=== PATIENT | male | born 1965 | race Caucasian/White ===

== ENCOUNTER 2017-03-18 14:19 | Emergency (ER) | payer OTHER ==
[~2017-03-18] VITALS: Ht 177.8 cm; Wt 96.0 kg
[2017-03-18 14:37] VITALS: TEMP 36.9; Ht 177.8 cm; Wt 96.0 kg
--- NOTE | 2017-03-18 15:23 | DIAGNOSTIC IMAGING REPORT ---
RIGHT ANKLE MIN 3 VIEWS ROUTINE CLINICAL HISTORY: Right ankle pain s/p pulling injury. Edema noted laterally. COMPARISON: None FINDINGS: There is a 3 mm ossific fragment along the fibular tip which represents an age indeterminate avulsed bone fragment. Talar dome is intact. There is moderate lateral ankle soft tissue swelling. No additional fractures are identified. IMPRESSION: 1. Tiny age indeterminate avulsed bone fragment along the fibular tip. No additional fractures identified. 2. Moderate lateral ankle soft tissue swelling. Electronically signed by: Smith Flores M.D. 03/18/2017 3:22 PM Dictated Date/Time: 03/18/2017 3:20 PM
--- NOTE | 2017-03-18 15:47 | EMERGENCY ROOM VISIT NOTE ---
History First contact with patient: 14:41 Chief Complaint: ANKLE PAIN Stated Complaint: RIGHT ANKLE PAIN History of Present Illness The patient is a 52 year old male who presents to the Emergency Room via private vehicle accompanied by with complaints of "right ankle pain. The patient states that earlier today, approximately 1.5 hours prior to arrival he was participating in a sack race. He states that when he attempted to move his right leg out of the sac the foot became caught, causing a popping sound in his right ankle. He notes immediate pain, and pain with bearing weight. He rates the pain at rest is a 3/10, but greater with weightbearing. He has had 2 ibuprofen prior to arrival and has been icing and elevating the region. He denies any numbness or tingling in the distal region. Review of Systems A complete 6-point Review of Systems was discussed with the patient, with pertinent positives and negatives listed in the History of Present Illness. All remaining Review of Systems questions can be considered negative unless otherwise specified. Past Medical/Surgical History Medical Problems: (1) No Known Active Medical Problems Family History Stroke Social History Smoking Status: Never Smoker Marital Status: Housing Status: lives with family Occupation Status: employed Current/Historical Medications No Active Prescriptions or Reported Meds Physical Exam Vital Signs Date Time Temp Pulse Resp B/P (MAP) Pulse Ox O2 Delivery O2 Flow Rate FiO2 03/18/17 15:49 65 16 136/74 98 Room Air 03/18/17 14:37 36.9 79 20 130/79 96 Room Air Physical Exam VITAL SIGNS - Vital signs and nursing notes were reviewed. Afebrile, hypertensive at 130/79, non-tachycardic and is saturating well on room air 96%. GENERAL -. 52-year-old male appearing stated age who is in no acute distress. Communicates well with provider and answers questions appropriately. SKIN - Without rashes. Skin overlying the right lateral ankle is edematous. EXTREMITIES - No clubbing or peripheral cyanosis. No pretibial edema present. Patient is neurovascularly intact in his extremity. There is tenderness elicited with plantarflexion, dorsiflexion and inversion as well as eversion of the right ankle joint appreciated best in the right lateral malleolar region, as well as anterior region. +5/5 strength noted in UE/LE bilaterally. Medical Decision & Procedures ER Provider Diagnostic Interpretation: RIGHT ANKLE MIN 3 VIEWS ROUTINE CLINICAL HISTORY: Right ankle pain s/p pulling injury. Edema noted laterally. COMPARISON: None FINDINGS: There is a 3 mm ossific fragment along the fibular tip which represents an age indeterminate avulsed bone fragment. Talar dome is intact. There is moderate lateral ankle soft tissue swelling. No additional fractures are identified. IMPRESSION: 1. Tiny age indeterminate avulsed bone fragment along the fibular tip. No additional fractures identified. 2. Moderate lateral ankle soft tissue swelling. Electronically signed by: Smith Flores M.D. 03/18/2017 3:22 PM Dictated Date/Time: 03/18/2017 3:20 PM Medical Decision Patient was seen and evaluated as above. After obtaining a thorough history and physical examination radiograph was obtained of the right ankle. He declined pain medication. He was given ice. Radiograph results revealed and an avulsed bone fragment. I believe this is best treated with a gel ankle splint, and crutches to be nonweightbearing. He was educated upon follow-up, was educated upon worrisome symptoms which to return, had questions prior to discharge, and was discharged home in good condition. In the evaluation and treatment of this patient, the following differential diagnoses were considered: Ankle Fracture, Ankle Sprain, Distal Fibula Fracture , Distal Tibia Fracture, Foot Fracture, [place]uve Fracture. Blood Pressure Screening Patient's blood pressure: Elevated blood pressure Blood pressure disposition: Elevated BP felt to be situational Impression Primary Impression: Avulsion fracture of ankle Departure Information Dispostion Home / Self-Care Condition GOOD Prescriptions No Active Prescriptions or Reported Meds Referrals John Mijares M.D. (PCP) Ar Duong D.O. Patient Instructions My [facility] Additional Instructions You have been treated in the Emergency Department for a right Ankle pain. You have received pain medicine in the emergency department which impairs your ability to operate a vehicle. It is illegal for you to drive after receiving these medicines. For pain control, you can use the following [id number] medicines: - Regular strength (325mg/tab) Tylenol (acetaminophen) 2 tabs every 4-6 hours as needed. Do not exceed 12 tablets in a 24 hour period. Avoid taking more than 4 grams (4000 mg) of Tylenol per day. This includes any other sources of acetaminophen you may take on a regular basis. - Regular strength (200 mg/tab) Advil (ibuprofen) 1-2 tabs every 4-6 hours as needed. Do not exceed a dose of 3200 mg per day. If this is a recent injury (<24 hrs), ice can be applied to the area of pain for the first 3 days to help decrease pain and inflammation. You have been provided the number for an Orthopaedic Surgeon. You should call this number as soon as possible to establish a follow-up visit from today's Emergency Department visit. Keep the ankle brace/splint in place until cleared by Orthopedics. Use the crutches you have been provided to keep ALL weight off of the ankle until weight bearing is tolerable. Return to the Emergency Department if your current symptoms worsen despite treatment course outlined above, or if you develop any of the following symptoms : intractable pain despite aforementioned treatment course or new onset of numbness or tingling of the foot. Please return to the emergency department with any new/concerning symptoms.
[2017-03-18 15:49] VITALS: BP 136/74; PULSE 65; O2SAT 98
== END 2017-03-18 15:58 | disposition home or self-care (01) ==
LOC: C.EDB 14:22 → C.EDD 15:58
DX: Z82.3 Family history of stroke (principal); M84.471A Pathological fracture, right ankle, initial encounter for fracture

== ENCOUNTER 2017-05-21 15:47 | Emergency (ER) | payer OTHER ==
[~2017-05-21] VITALS: Ht 177.8 cm; Wt 96.3 kg
[2017-05-21 15:49] VITALS: TEMP 36.9; Ht 177.8 cm; Wt 96.3 kg
--- NOTE | 2017-05-21 16:12 | DIAGNOSTIC IMAGING REPORT ---
R ANKLE MIN 3 VIEWS ROUTINE CLINICAL HISTORY: in d pod waiting room trauma. Pain. COMPARISON: 03/18/2017 DISCUSSION: Small old avulsion from the tip of the distal fibula. No acute bony abnormality. Mild soft tissue edema. IMPRESSION: Small old avulsion tip distal fibula. No acute bony abnormality. Mild soft tissue edema. The above report was generated using voice recognition software. It may contain grammatical, syntax or spelling errors. Electronically signed by: Omkar Amaya M.D. 05/21/2017 4:11 PM Dictated Date/Time: 05/21/2017 4:09 PM
--- NOTE | 2017-05-21 16:38 | EMERGENCY ROOM VISIT NOTE ---
ED Visit Note First contact with patient: 16:23 CHIEF COMPLAINT: right Ankle pain, hx avulsion fracture HISTORY OF PRESENT ILLNESS: This 52-year-old male patient presents to the emergency department approximately one hour after sustaining an injury to the right ankle and foot with a twisting, inversion motion while doing yard work. The patient states he accidentally stepped in a hole, reinjuring the right ankle. In February, the patient was participating in a sack race, when he fell and obtained an avulsion fracture of the lateral malleolus. He has been going through physical therapy and has been doing significantly better, however today when he fell he felt some sort of a pop. He states he has noticed a significant amount of swelling in the ankle, and has been unable to get it down. The patient complains of pain along the outside of the ankle. The patient denies pain of the foot. The patient rates the pain as throbbing and 6/ 10. The patient is able to bear weight on the foot, but this does cause worsening pain. Constant pain, worse with movement, weight bearing, and the dependent position. No knee pain, the patient is able to move their toes. No numbness or weakness of the foot, no laceration. The patient has taken [] for the pain. The patient denies any other injury. REVIEW OF SYSTEMS: A 6 system review of systems was completed with positives and pertinent negatives listed in the HPI. ALLERGIES: Cat dander, grass, course, elephants MEDICATIONS: Ibuprofen PMH: Avulsion fracture right lateral malleolus SOCIAL HISTORY: The patient lives locally with family. He denies drug, alcohol , tobacco use. PHYSICAL EXAM: Vital Signs: Reviewed Nurse's notes, vital signs stable. GENERAL : This is a 52-year-old male, presents in a wheelchair, no acute distress, but appears in pain, well-developed, well-nourished. MENTAL STATUS: Alert, oriented to person place and time, and cooperative. MUSCULOSKELETAL: The right ankle is swollen and tender over the lateral malleolus, but the skin is intact and there is no ligamentous instability. There is no fifth metatarsal tenderness. There is no tenderness over the rest of the foot. There is no calf or tibia/fibular tenderness. There is no visual deformity. The foot and toes are warm and well-perfused. Dorsalis pedis pulse 2+. Sensation to pain and light touch is intact. Capillary refill less than 2 seconds. RADIOLOGY: X-Ray Right Ankle: R ANKLE MIN 3 VIEWS ROUTINE CLINICAL HISTORY: in d pod waiting room trauma. Pain. COMPARISON: 03/18/2017 DISCUSSION: Small old avulsion from the tip of the distal fibula. No acute bony abnormality. Mild soft tissue edema. IMPRESSION: Small old avulsion tip distal fibula. No acute bony abnormality. Mild soft tissue edema. EMERGENCY DEPARTMENT COURSE: I examined the patient. Critical pathways were initiated and an x-ray was ordered. X-rays of the right ankle were reviewed by myself and read by radiology and reveal and old avulsion fracture of the distal fibula, but no acute fracture or deformity. A gel ankle splint was applied to the ankle under my direction and the position was satisfactory. Neurovascular status was rechecked and intact. The patient was instructed on the use of crutches and advised to use the crutches he has at home. The patient was discharged home in good condition. DIFFERENTIAL DIAGNOSIS: Fracture, contusion, sprain, strain, and others DIAGNOSIS: Right ankle sprain DISCHARGE INSTRUCTIONS: ORTHOPEDIC INSTRUCTIONS: Ibuprofen(Motrin, Advil) may be used for fever or pain. Use 600mg every six hours as needed. Take with food. Avoid using more than 2400mg in a 24 hour period. Do not use 2400mg per day for more than three consecutive days without physician direction. Prolonged inappropriate use can lead to stomach upset or ulcers. (AND/OR) Acetaminophen(Tylenol) may be used for fever or pain. Use 1000mg every six hours as needed. Avoid using more than 3000mg in a 24 hour period. Ice compresses for 20 minutes at a time four times daily for 2-3 days. Use the crutches you already have as instructed. Wear the gel splint until cleared by PT/orthopedics. Rest and elevate your injury. Return to the ER immediately for any numbness, tingling, severe pain, extreme swelling in the extremity or as needed. Call [facility], [phone], on Monday to arrange follow up for your injury. Please tell your Physical therapist at your appointment tomorrow about re- injuring the ankle. This will help to manage your new injury. Follow-up with your primary care physician in 2 to 3 days for a recheck of your current condition. Current/Historical Medications Scheduled PRN Ibuprofen Tab (Advil), 400 MG PO Q6H PRN for Pain Allergies Coded Allergies: Grass (Verified Allergy, Intermediate, CONGESTION, 03/18/17) Horse Allergy (Verified Allergy, Intermediate, ASTHMA, 03/18/17) Cat Dander (Verified Adverse Reaction, Intermediate, ASTHMA SYMPTOMS, 03/18) Uncoded Allergies: ELEPHANTS (Allergy, Intermediate, ASTHMA, 08/12/15) Vital Signs Date Time Temp Pulse Resp B/P (MAP) Pulse Ox O2 Delivery O2 Flow Rate FiO2 05/21/17 17:02 84 18 160/68 99 05/21/17 15:49 36.9 83 18 151/77 97 Room Air Departure Information Impression Primary Impression: Right ankle sprain Additional Impression: Avulsion fracture of ankle Dispostion Home / Self-Care Condition GOOD Referrals John Mijares M.D. (PCP) Ar Duong D.O. Patient Instructions ED Sprain Ankle, [facility] Additional Instructions ORTHOPEDIC INSTRUCTIONS: Ibuprofen(Motrin, Advil) may be used for fever or pain. Use 600mg every six hours as needed. Take with food. Avoid using more than 2400mg in a 24 hour period. Do not use 2400mg per day for more than three consecutive days without physician direction. Prolonged inappropriate use can lead to stomach upset or ulcers. (AND/OR) Acetaminophen(Tylenol) may be used for fever or pain. Use 1000mg every six hours as needed. Avoid using more than 3000mg in a 24 hour period. Ice compresses for 20 minutes at a time four times daily for 2-3 days. Use the crutches you already have as instructed. Wear the gel splint until cleared by PT/orthopedics. Rest and elevate your injury. Return to the ER immediately for any numbness, tingling, severe pain, extreme swelling in the extremity or as needed. Call [facility], [phone], on Monday to arrange follow up for your injury. Please tell your Physical therapist at your appointment tomorrow about re- injuring the ankle. This will help to manage your new injury. Follow-up with your primary care physician in 2 to 3 days for a recheck of your current condition. Problem Qualifiers Primary Impression: Right ankle sprain Encounter type: initial encounter Involved ligament of ankle: unspecified ligament Qualified Codes: S93.401A - Sprain of unspecified ligament of right ankle, initial encounter Additional Impression: Avulsion fracture of ankle Encounter type: subsequent encounter Fracture type: closed Laterality: right Fracture healing: with routine healing Qualified Codes: S82.891D - Other fracture of right lower leg, subsequent encounter for closed fracture with routine healing
[2017-05-21] MEDS ORDERED: IBUP-103 PO (16:45)
[2017-05-21 17:02] VITALS: BP 160/68; PULSE 84; O2SAT 99
== END 2017-05-21 17:03 | disposition home or self-care (01) ==
LOC: C.EDB 15:48 → C.EDD 17:03
DX: S93.401A Sprain of unspecified ligament of right ankle, initial encounter (principal); X50.1XXA Overexertion from prolonged static or awkward postures, initial encounter; Y93.H9 Activity, other involving exterior property and land maintenance, building and construction; Y93.89 Activity, other specified; Y99.8 Other external cause status; S82.891D Other fracture of right lower leg, subsequent encounter for closed fracture with routine healing; W18.39XD Other fall on same level, subsequent encounter

== ENCOUNTER 2024-07-04 11:14 | Observation (INO) ==
--- NOTE | 2024-06-26 08:28 | Anesthesiology Consultation ---
Date of Service June 26, 2024 Assessment & Plan (1) Encounter for pre-operative examination: Chart Review Chart Review: Acceptable Risk for Surgery and Patient NOT seen in Pre Admission Testing -Infectious Disease screening: Per PAT nursing assessment on 06/26/24. No known infectious disease contacts in past 10 days or current infectious disease symptoms. No recent travel outside the country. History Surgery Operation Date: 07/04/24 12:30 Proposed Procedures p Robotic Assisted Laparoscpoic Partial Cystectomy - David Maldonado, Height/Weight Height: 5 ft 9.5 in Weight: 87.543 kg Allergies Allergy/AdvReac Type Severity Reaction Status Date / Time grass pollen-perennial rye, Allergy Intermediate CONGESTION Verified 06/26/24 07:32 standar Horse/Equine Containing Allergy Intermediate ASTHMA Verified 06/26/24 07:32 Products cat dander AdvReac Intermediate ASTHMA Verified 06/26/24 07:32 SYMPTOMS ELEPHANTS Allergy Intermediate ASTHMA Uncoded 06/26/24 07:32 Medications Home Medications Medication Instructions Recorded Confirmed Last Taken No Known Home Medications 06/26/24 06/26/24 Unknown Past Medical History Medical History Bladder diverticulum BPH NOS w ur obs/LUTS Incomplete emptying of bladder Past Surgical History Surgical History History of hernia repair as a baby Hx of colonoscopy Social History Smoking Status: Never smoker Do You Dip or Chew Tobacco: No Hx Alcohol Use: Yes Alcohol type: beer alcohol intake frequency: other Alcohol Intake Frequency Comment: 1 case of beer per year Hx Substance Use: No substance use type: does not use Lab Results Anesthesia Preop Results Results Anesthesia Widget: WBC 5.45 K/ul (4.8-10.8) 06/10/24 Hgb 15.2 g/dl (14.0-18.0) 06/10/24 Hct 43.8 % (42.0-52.0) 06/10/24 Plt 196 K/uL (130-400) 06/10/24 Na 139 mmol/L (136-145) 06/10/24 K 3.6 mmol/L (3.5-5.1) 06/10/24 Cl 104 mmol/L (98-107) 06/10/24 CO2 28 mmol/L (21-32) 06/10/24 BUN 22 mg/dl (6-23) 06/10/24 Creat 1.03 mg/dl (0.6-1.4) 06/10/24 Glucose Level 78 mg/dl (70-99(Fasting)) 06/10/24 Testing Laboratory Results 05/29/24= URINE CULTURE: No growth- less than 1000 colonies/mL Electrocardiogram Date: 06/10/24 Findings: + SB @ (59bpm) Otherwise normal EKG per cardio Chest X-Ray Date: 06/10/24 Findings: + NAD
[~2024-07-04 11:14] MED LIST: DEXAMETHASONE SOD INJ 4 MG/ML VIAL ONE; LIDOCAINE 2% 2 ML VIAL/AMP(20MG/ML) INFIL ONE; MIDAZOLAM HCL 1 MG/ML 2ML VIAL ONE; ONDANSETRON INJ 2 MG/ML 2 ML VIAL ONE; PROPOFOL IV EMULSION 10 MG/ML 20 ML VIAL IV ONE; ROCURONIUM BROMIDE 10 MG/ML 5 ML VIAL IV ONE; fentaNYL citrate PF 100 MCG/2 ML VIAL ONE
[2024-07-04] MEDS ORDERED: fentaNYL citrate PF 100 MCG/2 ML VIAL IV PRN (11:29)
[2024-07-04] MEDS ORDERED: HYDROmorphone INJ 1 MG/ML SYRINGE IV PRN (11:29)
[2024-07-04] MEDS ORDERED: ePHEDrine sulfate 50 MG/ML AMP IV PRN (11:29)
[2024-07-04] MEDS ORDERED: ATROPINE SULFATE 0.1 MG/ML 10ML SYR IV PRN (11:29)
[2024-07-04] MEDS: LR 15ML/HR IV SCH (11:54)
--- NOTE | 2024-07-04 11:55 | History & Physical Report ---
Date of Service July 04, 2024 Assessment & Plan (1) Right nephrolithiasis: (2) Bladder diverticulum: (3) Incomplete emptying of bladder: Plan Patient with large bothersome diverticulum of the bladder. Found on cystoscopy and with imaging. Imaging and reports were all reviewed. Extensive conversation with patient today. Discussed potential risks and ongoing issues discussed possibility bleeding infection stones tumors and other issues. Discussed possible ability of perfor ation and other injury. All questions have been answered to the best of my abilities, and the patient has expressed excellent understanding. Risks and benefits discussed at length for procedure. These include bleeding, infection, injury to surrounding tissues or organs, and risks associated with anesthesia. Patient states understanding and agrees to proceed. Will sign consent and proceed. Plan for Robot assisted laparoscopic partial cystectomy History of Present Illness Primary Care Provider: Narciso Wilhelm DO Patient here for procedure. No changes in medical issues. No major changes in urinary issues. Continued issues and concerns. No change in pain or discomfort. No severe fevers or chills. No chest pain or shortness of breath. Risks and benefits discussed at length for procedure. These include bleeding, infection, injury to surrounding tissues or organs, and risks associated with anesthesia. Patient and/or family states understanding and agrees to proceed. Consent and supporting information completed. Allergies Allergy/AdvReac Type Severity Reaction Status Date / Time grass pollen-perennial rye, Allergy Intermediate CONGESTION Verified 07/04/24 11:35 standar Horse/Equine Containing Allergy Intermediate ASTHMA Verified 07/04/24 11:35 Products cat dander AdvReac Intermediate ASTHMA Verified 07/04/24 11:35 SYMPTOMS ELEPHANTS Allergy Intermediate ASTHMA Uncoded 07/04/24 11:35 Home Medications Medication Instructions Recorded Confirmed Type No Known Home Medications 06/26/24 07/04/24 History Past Med/Surg History Problem List Encounter for pre-operative examination Right nephrolithiasis Bladder diverticulum Flank pain Incomplete emptying of bladder BPH NOS w ur obs/LUTS Medical History Incomplete emptying of bladder BPH NOS w ur obs/LUTS Bladder diverticulum Surgical History Hx of colonoscopy History of hernia repair as a baby Social History Smoking Status: Never smoker Second Hand Exposure: No; Do You Dip or Chew Tobacco: No; Tobacco Cessation Education Requested by Patient: No Hx Alcohol Use: Yes Alcohol type: beer Hx Substance Use: No Preferred Language: Kazakh Communication Ability: Effective Laboratory Worker Required: No Beliefs That Will Affect Care: None marital status: Current Living Situation: Spouse current occupational status: employed Other Information That Helps Us Care for You: No Feels Safe at Home: Yes Safety Concerns: Feels Safe At This Time Assistive Devices: Glasses Review of Systems All systems reviewed & are unremarkable except as noted in HPI & below Physical Exam Physical Exam: General: Alert/Arousable. No Acute illness. . HEENT: Inspection normal. Normal inspection of face. Normal inspection of neck. Psychologic: Normal affect/No change in mentation. Respiratory: No use of accessory muscles. No respiratory changes or exacerbation or changes with tachypnea or dyspnea. Cardiovascular: No tachycardia Skin: [address] [address] and Dry. No new rashes or visible lesions. Abdomen: Normal inspection. No guarding. Results & Data Vital Signs (Past 12 Hours) Vital Signs Temp Pulse Resp BP Pulse Ox O2 Del Method 07/04/24 11:45 36.6 C 73 20 142/91 H 98 Room Air PG Care Time/CCT Total # of Minutes Spent Total Time Spent with Patient: Total time spent is greater than 50% in coordination of care (as documented) at patient's floor/unit and/or counseling patient: Coding Level of Care Code None Diagnoses Right nephrolithiasis N20.0 Bladder diverticulum N32.3 Incomplete emptying of bladder R33.9
[2024-07-04] MEDS: cefTRIAXone SODIUM 2,000 MG MINI-B 50 ML IV SCH (12:33)
[2024-07-04] MEDS ORDERED: ePHEDrine sulfate 50 MG/5 ML SYR ONE (12:51)
[2024-07-04] MEDS ORDERED: SUGAMMADEX SODIUM 200 MG/2 ML VIAL IV ONE (12:59)
[2024-07-04] MEDS ORDERED: fentaNYL citrate PF 100 MCG/2 ML VIAL ONE (13:09)
[2024-07-04] MEDS: VANCOMYCIN HCL 1000MG/20ML VIAL ONE ×2 (14:08→15:35)
[2024-07-04] MEDS: SURGICEL ABSORB HEMOSTAT 2IN X 14IN TOP ONE (14:10)
[2024-07-04] MEDS ORDERED: METHYLENE BLUE 0.5% 10 ML VIAL ONE (14:21)
[2024-07-04] MEDS ORDERED: KETOROLAC 30 MG/ML VIAL ONE (14:36)
[2024-07-04] MEDS: BUPIVACAINE 0.5 % 5 MG/1 ML MPF 30ML VIAL ONE (15:35)
[2024-07-04] MEDS: FLOSEAL HEMOSTATIC MATRIX 10ML TOP ONE (15:35)
--- NOTE | 2024-07-04 15:59 | Operative Report ---
PG Post Operative Report Pre & Post Diagnosis Operation Date: 07/04/24 12:35 Pre-Op Diagnosis: Bladder Diverticulum, Incomplete Emptying of Bladder Post-Op Diagnosis: Bladder Diverticulum, Incomplete Emptying of Bladder I identified the patient and participated in the time-out.: Yes Procedure Operation Date: 07/04/24 12:35 Actual Procedures Robotic Assisted Laparoscopic Partial Cystectomy with extensive lysis of adhesions. Cystoscopy with Insertion Stent Right Ureter - David Maldonado, Surgeon David Maldonado, II, DO Mechanical Engineering Technologist Jt CADET Estimated Blood Loss 50 Findings Consistent with Post-Op Diagnosis Very large posterior diverticulum near the right UO. Significant adhesion of the sigmoid colon Specimens Bladder Diverticulum/Partial Cystectomy Drains 4.8 Fr Multi-length Stent Right 10 Fr Round Drain 18 Fr Silicon Flynn catheter. Anesthesia Type General Complications none Disposition Disposition: Recovery Room Indications Patient with Large Diverticulum and significant urinary issues. Risk and benefits were discussed at length. Patient elected to undergo robotic assisted laparoscopic partial cystectomy Description of Procedure The patient was brought to the operative suite and placed under general endotracheal intubation anesthesia in the supine position. The patient was transferred to the dorsal lithotomy position. At this point, the patient prepped and draped in the usual sterile fashion and a timeout was completed. Preoperative antibiotics of Ancef 2 grams had been given. MARIE's and SCD's were placed on the patient's lower extremities. A catheter was placed using sterile technique. With the time out completed the patient was placed into Trendelenburg and the skin at the umbilicus was anesthetized. A small incision was made superior to the umbilicus. A Varess Needle was placed and confirmed to be in the abdominal cavity. Water drop test passed. The Abdominal cavity was insufflated to 15 mmHG. The camera port was then placed. A laparoscopic camera was placed into the port and the abdominal cavity inspected. No concerning features were noted. At this point, the skin was marked for port placement and 8mm working ports were placed. The skin was anesthetized down to fascia and an approx 1cm incision was made to place the 3 x 8mm ports. A 12 mm and 5 mm night assistant ports were also placed in similar fashion under direct visualization. The patient was transferred into steep Trendelenburg position and the legs lowered. The robot was positioned and docked. The camera was placed and all trocars were positioned under direct visualization. Jt CADET was integral in port placement, camera utilization, and docking procedure. She remained in sterile attire and then proceeded to assist the remainder of the case. At this point, I transitioned to the robotic console. At this point, the sigmoid colon was mobilized superiorly and the pelvis assessed. Extensive Adhesions were freed to allow mobilization. Approx 20 additional minutes for lysis of adhesions. The Flynn catheter was manipulated and vancomycin infused saline was used to fill the bladder. The vancomycin infused saline was used to fill and empty the bladder a number of times in order to flush the bladder. The bladder was then filled. The large diverticulum was able to be seen projecting from the posterior wall. The peritoneum in the midline was opened between rectum and bladder and the large diverticulum was incised. Care was taken to monitor during dissection. Both the vas deferens as well as the ureter on the right were identified. Care was taken to avoid dissection especially with cautery around the ureter. The anterior portion of the diverticulum was dissected first. The plane between the bladder and the diverticulum were further developed. All bleeding was controlled. Hem-o-vargas clips were used occasionally to ligate larger vessels. No significant lesion or mass was discovered. The dissection was taken then down to the neck of the diverticulum. The arms were then adjusted in order to lift the diverticulum and the peritoneum were dissected from the base of the large diverticulum. During this dissection the right ureter was fully identified and with blunt dissection and minimal manipulation the ureter was able to be dissected away from the large diverticulum. Extensive dissection along the posterior portion was completed allowing further mobilization. At this point the catheter was drained and the bladder was irrigated a another time. With the diverticulum somewhat emptied further dissection was taken around the neck of the diverticulum. It did appear to be narrow however it did appear also to be in close proximity to the insertion of the ureter on the right side. The ureter was able to be identified and monitored entering into the bladder. The area around the diverticulum was fully dissected clear. No major areas of bleeding or other issues were noted. A 30 degree cystoscope was then placed into the bladder after removing the catheter. The os of the diverticulum was found to be in close proximity to the right ureter as expected from the dissection intra-abdominal he. Because of its location it was decided to place a stent. This would allow further dissection and especially during closure would ensure that the ureter is not affected by the closure process. The location of the diverticulum however limited access and it was decided at this point to excise the diverticulum and placed the stent after the diverticulum has been removed in order to allow easy placement of the stent. I transition back to the robotic console. The diverticulum had been completely freed from the surrounding tissue no areas of bleeding or other concerns were noted. At this point starting in the more superior position the neck of the diverticulum was incised at the bladder. The entire channel was able to be completely excised and the entire diverticulum was able to be removed with minimal spilling of the internal urine/irrigation solution. The suction device was used to suction out the fluid within the diverticulum. And the diverticulum was placed into an Endo Catch bag and removed from the abdomen. This was sent for pathologic analysis. The dissection area was inspected. The diverticulum had been fully excised. The ureteral orifice on the right was able to be identified. The left ureteral orifice was also able to be identified. The right ureteral orifice was in close proximity to the area of resection however no sign of any injury or resection over top of the ureteral tissue. The ureter entering into the bladder was also able to be identified and did not appear to have any injuries or problems. No major bleeding was appreciated. A minor opening in the bladder has been created in order to completely excise the diverticulum. At this point utilizing the cystoscope as well as the robotic arms a wire and a 5 Ugandan open-ended catheter were used to place a wire into the UO on the right side. The wire was easily advanced. The 5 Ugandan open-ended catheter was removed and a 4.8 Ugandan double-J ureteral stent was placed over the wire into the renal pelvis. The wire was removed and the stent was placed in the bladder lumen. This was situated to allow closure of the bladder mucosa. The stent did appear to be in good position and was freely draining urine. The robotic camera was was once again utilized to inspect the ureter entering into the bladder. No signs of exposure or injury or other issues was confirmed with the stent placement. A 3-0 Vicryl suture was then used to close the mucosa of the bladder. A 2-0 V-Loc suture was used to close the muscularis tissue. And a second 2-0 V- Loc suture was then used to close in an unprotected fashion the bladder muscle. The closure was completed. The cystoscope was then used to inspect the bladder and the ureter and the stent. No major issues or concerns with the closure. No signs of bleeding or other issues. The posterior portion of the bladder was inspected. The bladder was filled utilizing the vancomycin irrigation. No leaking or other issues were noted with the closure. The entire area was inspected. No major bleeding or other issues. At this point a 10 Ugandan drain was placed down into the lower pelvis. The peritoneum over top of the bladder that had been opened was closed using a final 2-o V-Loc suture. The entire abdomen and as well as the dissection area were inspected. A 3-0 nylon suture was used to secure the drain into position from the first robotic arm. No major bleeding no other issues or concerns. The bladder was easily irrigated. The scope was placed a final time to inspect the stent and the bladder. No major issues or concerns. A new 18 Ugandan Flynn catheter was then placed. This was set to drainage. The entire dissection space was inspected one final time. No bleeding or injuries or areas of concern were noted. No tumor or other concerning features were noted. At this point, the robot was undocked and moved away from the patient. The patient was taken out of Trendelenberg. The port sites were all assessed laparoscopically. The 12 mm port site was closed with the Riky Yu device. The other ports were assessed and no issues observed. The port some cells were removed. A surgical stapling device was used to close the skin over top of each of the incisions. Bandages were then placed. The patient was then cleaned. The drains were set to drainage. The patient was cleaned and bandaged, aroused from anesthesia, and transferred to the pacu in stable condition having tolerated the procedure well with no complications. I was present and participated in all aspects of the procedure. HELIO Waters was critical in the portions as mentioned above and remained in the first officer position for the entire case. Will plan to observe postoperatively and monitor. Flynn to be remain in place until followup and after patient has completed cystogram. Will attempt to remove abdominal drain tomorrow if no major output. Will plan to maintain stent until after catheter removal. Will plan to have patient follow-up in approximately 2 to 3 weeks with cystogram and plan for possible catheter removal.. I attest to the content of the Intraoperative Record and any orders documented therein. Any exceptions are noted below.
--- NOTE | 2024-07-04 16:28 | XRay Report ---
EXAM: Radiograph of the Abdomen 1 View INDICATION: Evaluate stent placement. TECHNIQUE: Frontal supine view of the abdomen/pelvis. COMPARISON: No relevant prior studies available. FINDINGS: Limitations: None. Gastrointestinal tract: Moderate amounts of stool in the colon most notable in the flexures. No obstruction. Organs: Visualized organ shadows appear grossly normal. Bones/joints: No fracture, erosion or dislocation. Soft tissues: Skin annmarie and subcutaneous gas noted consistent with recent laparotomy. Tubes, lines and devices: The right ureteral stent is coiled in the renal pelvis and the proximal loop is across the UPJ. The distal loop is in the bladder. There is a drain coiled over the mid pelvis. IMPRESSION: 1. Right ureteral stent as above. 2. Moderate colonic stool particularly in the flexures. 3. Pelvic drain in place. ACT 112: Negative or not required by law. Electronically signed by Eli Leblanc 07-04-2024 4:28 PM
--- NOTE | 2024-07-04 16:29 | Anesthesiology Progress Note ---
Date of Service July 04, 2024 Anesthesia Post Procedure Vital Signs Vital Signs: Temp Pulse Resp BP Pulse Ox O2 Del Method O2 Flow Rate 07/04/24 16:20 36.4 C L 79 16 134/80 95 Room Air 07/04/24 16:10 82 16 137/80 96 Room Air 07/04/24 16:00 87 17 139/82 100 Oxymask 9 07/04/24 15:52 36.5 C 76 13 129/77 99 Oxymask 9 07/04/24 11:45 36.6 C 73 20 142/91 H 98 Room Air Transfer of Care Handoff Completed per policy Notes Mental Status: alert / awake / arousable and participated in evaluation Patient Amnestic to Procedure: Yes Nausea / Vomiting: adequately controlled Pain: adequately controlled Airway Patency, RR, SpO2: stable & adequate BP & HR: stable & adequate Hydration State: stable & adequate Anesthetic Complications: no major complications apparent and Pt Satisfied with anesthetic care
[2024-07-04 16:34] LABS: Basophils # (auto) 0.05 K/uL (0.00-0.20); Basophils % (auto) 0.5 %; Eosinophils # (auto) 0.05 K/uL (0.00-0.50); Eosinophils % (auto) 0.5 %; Hematocrit (blood only) 42.5 % (42.0-52.0); Hemoglobin 15.2 g/dl (14.0-18.0); Immature Granulocytes # (auto) 0.02 K/uL (0.01-0.20); Immature Granulocytes % (auto) 0.2 %; Lymphocytes # (auto) 1.19 K/uL (1.20-3.40); Lymphocytes % (auto) 12.2 %; Mean Corpuscular Hemoglobin 32.2 pg (25.0-34.0); Mean Corpuscular Hgb Conc 35.8 g/dL (32.0-36.0); Mean Platelet Volume 10.1 fL (9.4-12.4); Monocytes # (auto) 0.19 K/uL (0.11-0.59); Monocytes % (auto) 1.9 %; Neutrophils # (auto) 8.25 K/uL (1.40-6.50); Neutrophils % (auto) 84.7 %; Platelet Count 202 K/uL (130-400); RDW Coefficient of Variation 13.4 % (11.5-14.5); RDW Standard Deviation 44.4 fL (36.4-46.3); Red Blood Count 4.72 M/uL (4.70-6.10); White Blood Count 9.75 K/ul (4.8-10.8)
[2024-07-04 16:51] LABS: BUN Creatinine Ratio 17.1 (10-20); Calcium 8.5 mg/dl (8.6-10.3); Potassium 3.5 mmol/L (3.5-5.1)
[2024-07-04] MEDS ORDERED: oxyCODONE HCL IR 5 MG TAB (IMMEDIATE RELEASE) PO PRN ×2 (16:51)
[2024-07-04] MEDS ORDERED: MoRPHine SULFATE 4 MG/ML 1 ML CARP\\VIAL IV PRN (16:51)
[2024-07-04] MEDS ORDERED: MoRPHine SULFATE 2 MG/ML CARP IV PRN (16:51)
[2024-07-04] MEDS ORDERED: ONDANSETRON INJ 2 MG/ML 2 ML VIAL IV PRN (16:51)
[2024-07-04] MEDS: ACETAMINOPHEN 325 MG TAB PO SCH (17:35)
[2024-07-04] MEDS ORDERED: oxyBUTYnin chloride 5 MG TAB PO PRN (17:40)
[2024-07-04] MEDS ORDERED: PHENAZOPYRIDINE HCL 200 MG TAB PO PRN (17:40)
[2024-07-04] MEDS: DOCUSATE SODIUM 100 MG CAP PO SCH (20:11)
[2024-07-04] MEDS: TAMSULOSIN HCL 0.4 MG CAP PO PRN (20:13)
[2024-07-04] MEDS: HEPARIN SOD 5,000 UNIT/0.5 ML VIAL SQ SCH (20:18)
[2024-07-04] MEDS: ceFAZolin 2000MG 2,000 MG/15 ML SYR IV SCH (20:18)
[2024-07-05 06:53] LABS: Basophils # (auto) 0.01 K/uL (0.00-0.20); Basophils % (auto) 0.1 %; Immature Granulocytes # (auto) 0.03 K/uL (0.01-0.20); Immature Granulocytes % (auto) 0.3 %; Lymphocytes # (auto) 1.03 K/uL (1.20-3.40); Lymphocytes % (auto) 9.2 %; Mean Corpuscular Hemoglobin 32.3 pg (25.0-34.0); Mean Corpuscular Hgb Conc 35.9 g/dL (32.0-36.0); Mean Corpuscular Volume 90.1 fL (80.0-100.0); Mean Platelet Volume 10.2 fL (9.4-12.4); Monocytes # (auto) 0.75 K/uL (0.11-0.59); Monocytes % (auto) 6.7 %; Neutrophils # (auto) 9.41 K/uL (1.40-6.50); Neutrophils % (auto) 83.7 %; Platelet Count 197 K/uL (130-400); RDW Coefficient of Variation 13.5 % (11.5-14.5); RDW Standard Deviation 44.7 fL (36.4-46.3); Red Blood Count 4.33 M/uL (4.70-6.10); White Blood Count 11.23 K/ul (4.8-10.8)
[2024-07-05 07:30] LABS: Calcium 8.3 mg/dl (8.6-10.3); Potassium 3.8 mmol/L (3.5-5.1)
[2024-07-05 07:36] LABS: BUN Creatinine Ratio 14.3 (10-20); Creatinine Clr Calc Pharmacy 74.8 ml/min
--- NOTE | 2024-07-05 09:01 | Urology Progress Note ---
Date of Service July 05, 2024 Assessment & Plan (1) Bladder diverticulum: Plan: Patient POD #1 s/p Robotic Assisted Laparoscopic Partial Cystectomy with extensive lysis of adhesions; Cystoscopy with Insertion Stent Right Ureter Patient afebrile with stable vitals Labs reviewedcreatinine 1.19, WBC 11.23, hemoglobin 14.0 Subjectively doing well Tolerating clear liquid dietwill advance diet, DC IV fluids Incisions appropriate SUSIE with minimal outputwill plan to remove prior to discharge Encouraged ambulation Flynn patent and draining clear yellow urine Plan to maintain Flynn catheter for 2 to 3 weeks Patient will have cystogram prior to catheter removal Maintain ureteral stent until after catheter removal Anticipate discharge to home later today or tomorrow presuming he continues to progress Expected clinical course reviewed, all questions answered Will arrange outpatient follow-ups Admission and Anticipated Discharge Date Admission Date: July 04, 2024 Subjective Patient seen and examined at bedside this morning. Reports some mild incisional discomfort. Flynn intact and draining clear yellow urine. Tolerating clear liquid diet. No nausea or vomiting. +Flatus. No fever or chills. Review of Systems Constitutional: as per Subjective / HPI Gastrointestinal: as per Subjective / HPI Genitourinary: + as per Subjective / HPI Physical Exam Constitutional: well developed and well nourished; no acute distress Respiratory: normal respiratory effort; no respiratory distress and no labored breathing Gastrointestinal (Abdomen): Inspection/Auscultation: abdomen normal to inspection Musculoskeletal: Head/Neck/Chest: normocephalic Skin: Incisions C/D/I with annmarie, SUSIE with minimal output Neurologic: moves all extremities and awake Psychiatric: Orientation: alert and oriented x 3 Genitourinary: Flynn patent and draining clear yellow urine Results & Data Vital Signs (Past 12 Hours) Vital Signs Temp Pulse Resp BP Pulse Ox O2 Del Method 07/05/24 08:54 36.2 C L 71 16 118/70 94 Room Air 07/05/24 03:00 36.8 C 71 16 127/80 96 Room Air 07/04/24 23:09 36.5 C 82 16 135/82 96 Room Air PG Care Time/CCT Total # of Minutes Spent Total Time Spent with Patient: Total time spent is greater than 50% in coordination of care (as documented) at patient's floor/unit and/or counseling patient: Coding Level of Care Code None Diagnoses Bladder diverticulum N32.3
[2024-07-05 11:28] VITALS: BP 117/75; PULSE 78; RESP 18; TEMP 98.8; O2SAT 98
--- NOTE | 2024-07-05 13:21 | Discharge Summary ---
Date of Service July 05, 2024 Admission HPI Per Admitting Provider Patient here for procedure. No changes in medical issues. No major changes in urinary issues. Continued issues and concerns. No change in pain or discomfort. No severe fevers or chills. No chest pain or shortness of breath. Risks and benefits discussed at length for procedure. These include bleeding, infection, injury to surrounding tissues or organs, and risks associated with anesthesia. Patient and/or family states understanding and agrees to proceed. Consent and supporting information completed. Principal Diagnosis Bladder diverticulum Discharge Exam Constitutional well developed and well nourished; no acute distress Respiratory normal respiratory effort; no respiratory distress and no labored breathing Gastrointestinal (Abdomen) Inspection/Auscultation: abdomen normal to inspection Musculoskeletal Head/Neck/Chest: normocephalic Neurologic moves all extremities and awake Psychiatric Orientation: alert and oriented x 3 Genitourinary Flynn draining clear yellow Discharge Data Allergies Allergy/AdvReac Type Severity Reaction Status Date / Time grass pollen-perennial rye, Allergy Intermediate CONGESTION Verified 07/04/24 11:35 standar Horse/Equine Containing Allergy Intermediate ASTHMA Verified 07/04/24 11:35 Products cat dander AdvReac Intermediate ASTHMA Verified 07/04/24 11:35 SYMPTOMS ELEPHANTS Allergy Intermediate ASTHMA Uncoded 07/04/24 11:35 Procedures Performed Operation Date: 07/04/24 12:35 Actual Procedures p Robotic Assisted Laparoscpoic Partial Cystectomy, Cystoscopy, Insertion Stent Right Ureter(Left) - David Maldonado DO Hospital Course (1) Bladder diverticulum: Patient POD #1 s/p Robotic Assisted Laparoscopic Partial Cystectomy with extensive lysis of adhesions; Cystoscopy with Insertion Stent Right Ureter Patient afebrile with stable vitals Labs reviewedcreatinine 1.19, WBC 11.23, hemoglobin 14.0 Subjectively doing well Tolerating clear liquid dietwill advance diet, DC IV fluids Incisions appropriate Encouraged ambulation Flynn patent and draining clear yellow urine Plan to maintain Flynn catheter for 2 to 3 weeks Patient will have cystogram prior to catheter removal Maintain ureteral stent until after catheter removal Anticipate discharge to home later today or tomorrow presuming he continues to progress Expected clinical course reviewed, all questions answered Will arrange outpatient follow-ups Total Time Total Time Spent Total Time Spent (In Minutes): 29 Discharge Plan Discharge Items Patient Disposition: Home - Self-Care Reason For Visit: Bladder Diverticulum, Incomplete Emptying of Bladd Discharge Diagnosis: Bladder diverticulum, incomplete emptying of bladder Activity: Per Instructions section Lifting: No more than 10 pounds Bathing Comment: Okay to shower after discharge, no tub bath or soaking Sexual Activity: Wait until after follow-up appointment Exercise/Sports: Wait until after follow-up appointment Driving/Machine Use: No driving while taking prescription pain medication Non-emergency contact: Surgeon and Urologist Call non-emergency contact if: your pain is not controlled, you have a fever, your temperature is above 101, your wound has increased redness, your wound has increased drainage and your wound pain has increased Follow-up/Referrals: David Maldonado DO [Physician] - 07/24/24 9:45 am Narciso Wilhelm DO [Primary Care Provider] - Urology,Nurse [FAKE FOR SCHEDULES] - 07/12/24 8:30 am (Staple removal with nursing) Diet: Regular Addtl Attending Provider Instructions: Please take all medications as prescribed and keep all follow-ups as scheduled. Please call our office at [phone] with any questions, concerns or need to reschedule appointments for any reason. We are happy to assist you. Follow-up appointments: * Nursing appointment at [facility] for staple removal on 07/12/2024 at 830 am ([place]). * [place] Cystogram at [facility] on 07/23/24 at 0815. Please arrive at Main entrance to check in at 0745. * Follow up with Dr. Maldonado at [facility] on 07/24/2024 at 0945 ([place]). Activity: We recommend having someone with you for the first few days after surgery to help care for you. For the first 2 weeks after surgery, we would like you to get up and walk around your house. However, we recommend limit physical activity that would increase your heart rate. This will allow your body to rest and heal. Take naps if you feel tired. Don't lift anything heavier than 10 pounds, mow the law or ride a bicycle until your follow-up appointment. Please avoid long car rides. Home Care: Unless directed otherwise, drink 6 to 8 glasses of water a day (enough to keep your urine light colored). This will also help keep a healthy flow of urine. We recommend using a stool softener for the first two weeks to avoid constipation. Flynn Catheter or Suprapubic Catheter care: Keep the catheter well secured with either a leg back or leg strap with large bag. Empty your bag when it's about half full. You may notice some blood in the bag. This is normal after surgery and while the catheter is in place. Use mild soap (such as Dove or Dial) and water to wash the catheter and the head of your penis daily, or more frequently if needed. Return to your normal diet, we encourage good protein intake to promote healing. You may shower as normal. Please avoid tub baths or soaking until catheter removed and incisions well healed. Wearing sweat pants while you have the catheter is recommended, they will be more comfortable. Follow-up Your follow up appointments for having your catheter removed, and follow up with your physician should already be scheduled. If you have any questions regarding this, please contact our office. Your final pathology report will be discussed at your physician follow-up appointment. Call [facility] at [phone] right away if you have any of the following: Chest pain or trouble breathing (call 911 or go to the hospital) Fever of 101F or higher, uncontrolled vomiting Heavy bleeding, clots, or bright red blood from the catheter Catheter that falls out or stops draining Foul-smelling discharge from your catheter Redness, swelling, warmth, or increased pain at your incision site Drainage, pus, or bleeding from your incision Pending Studies at Discharge: Yes Stand-Alone Forms: My [facility], Smoking Cessation Medications and DC Order Prescriptions: New cephalexin 500 mg capsule 500 mg PO BID 7 Days Qty: 14 0RF tamsulosin 0.4 mg capsule 0.4 mg PO HS Qty: 30 0RF Rx Instructions: take 1 tablet at bedtime Discharge Orders: Discharge Order (Routine); Ordered 07/05/24 Ordered By: Yani Waters Admission Data Admit Date/Time: 07/04/24 15:45 Attending Provider: David Maldonado Admit Provider: David Maldonado Primary Care Provider: Narciso Wilhelm Other Interventions: Discharge Summary Assessment (RN) Last Done: 07/05/24 14:30 Coding Level of Care Code 39871 IN/OBS DISCH 30 MIN/LESS Diagnoses Bladder diverticulum N32.3
== END 2024-07-05 18:18 | disposition home or self-care (01) | DRG 655 ==
LOC: ASU 11:14 → INTOOBSV 15:45 → 3N 15:45

== ENCOUNTER 2024-07-18 23:26 | Inpatient (IN) ==
--- NOTE | 2024-07-19 00:07 | Emergency Department Note ---
Impression & Plan Complicated UTI (urinary tract infection), Fever Admit to the [facility] ED Provider Note NAME: TEJAS KEARNS AGE: 59 SEX: Male INFORMANT: Patient ED PROVIDER(S): Michelle Kingston DO CHIEF COMPLAINT: Fever PLAN: Disposition: Admit to the [facility] MEDICAL DECISION MAKING: This is a 59-year-old male patient who underwent bladder surgery 2 weeks ago who presents to the emergency department with a fever. Patient had a stent placed during his surgery and was placed on a 1 week course of Keflex which he finished 1 week ago. 2 days ago, the patient had episodes of severe pain which lasted approximately 1 hour. He hydrated and this seemed to subside but over the past 24 hours, patient developed cold sweats and increased pain in the right lower abdomen under his incisions. Laboratory studies tonight revealed no leukocytosis or anemia. Lactate was normal but procalcitonin was elevated to 2.98. He had a fever at home of 103 for which she took Tylenol. He is afebrile here in the emergency department but was tachycardic on presentation. Urinalysis here appears to be infected. Given the fact that he has a ureteral stent in place in the peers to have a urinary tract infection with an elevated procalcitonin, the patient was treated with IV Rocephin and will require admission to the hospital. I discussed the case with the [facility]. Care/management discussed with: greenhouse manager and [facility] Triage Nursing notes: reviewed and agree with them. Vital Signs: reviewed and remarkable for Tachycardia Additional History obtained from: patient's who is at the bedside Differential Diagnosis: sepsis, UTI, obstructive uropathy, infected stent Diagnostics, independently interpreted by me: ECG: normal sinus rhythm at a rate of [address] segment elevation or signs of ischemia. There is no ectopy., QTc was 399 ms. Cardiac Monitoring: Normal sinus rhythm at a rate of 98 Imaging studies: portable chest x-ray: HPI: 59 year old Male arrives for evaluation of Fever. patient underwent bladder surgery 2 weeks ago to have a diverticulum removed. Patient had a stent placed during his surgery and was placed on a 1 week course of Keflex which he finished 1 week ago. 2 days ago, the patient had episodes of severe pain which lasted approximately 1 hour. He hydrated and this seemed to subside but over the past 24 hours, patient developed cold sweats and increased pain in the right lower abdomen under his incisions. PAST MEDICAL HISTORY: See Below, PAST SURGICAL HISTORY: See Below, SOCIAL HISTORY: See Below, HOME MEDICATIONS: See list ALLERGIES: see list VITALS: See Below PHYSICAL EXAMINATION: HEENT: Head - normocephalic and atraumatic. Pupils are equal, round, and reactive to light. Extraocular eye muscles are intact, and sclera are anicteric. Nose - moist nasal mucosa without discharge. Mouth - moist buccal mucosa. Oropharynx is nonerythematous and there is no tonsillar exudate or edema noted. Neck: Supple; no JVD, nuchal rigidity, cervical lymphadenopathy, or auscultated bruits. Heart: Regular rate and rhythm. There is a normal S1 and S2 with no murmurs, clicks, or gallops appreciated. Lungs: Clear to auscultation bilaterally with no wheezes, rales, or rhonchi. Abdomen: Soft, mild tenderness to palpation in the right lower quadrant, nondistended, with good bowel sounds. Surgical incisions appear to be well- healed. There are no palpable pulsatile masses or hepatosplenomegaly. There is no guarding, rigidity, or rebound noted. Extremities: No evidence of cyanosis, clubbing, or edema. There are easily palpable peripheral pulses. Skin: warm and dry with good turgor and no rashes. Emergency department course: Patient was evaluated in room B-10. A twelve- lead EKG was obtained. Septic protocol was performed. An order was placed for continuous cardiac monitoring. The patient was in a normal sinus rhythm at a rate of 98. A urine specimen was obtained and appears to be infected. The patient does not appear to be retaining urine as a bladder scan was performed. The patient was given a dose of IV Rocephin. [facility]. Past Med/Surg History Problem List (Updated 07/19/24 @ 19:53 by Michelle Kingston DO) Fever (Acute) Complicated UTI (urinary tract infection) (Acute) Complicated UTI (urinary tract infection) Encounter for pre-operative examination Right nephrolithiasis Bladder diverticulum Flank pain Incomplete emptying of bladder BPH NOS w ur obs/LUTS Medical History Incomplete emptying of bladder BPH NOS w ur obs/LUTS Bladder diverticulum Surgical History Hx of colonoscopy History of hernia repair as a baby Social History Smoking Status: Never smoker Second Hand Exposure: No; Do You Dip or Chew Tobacco: No; Hx Alcohol Use: No Hx Substance Use: No Preferred Language: Fijian Communication Ability: Effective Licensed Prosthetist/Orthotist Required: No Beliefs That Will Affect Care: None marital status: Current Living Situation: Spouse current occupational status: employed Feels Safe at Home: Yes Assistive Devices: None Allergies Allergies Allergy/AdvReac Type Severity Reaction Status Date / Time grass pollen-perennial rye, Allergy Intermediate CONGESTION Verified 07/04/24 11:35 standar Horse/Equine Containing Allergy Intermediate ASTHMA Verified 07/04/24 11:35 Products cat dander AdvReac Intermediate ASTHMA Verified 07/04/24 11:35 SYMPTOMS ELEPHANTS Allergy Intermediate ASTHMA Uncoded 07/04/24 11:35 Home Meds Previous Rx's Medication Instructions Recorded tamsulosin 0.4 mg capsule 0.4 mg PO HS #30 caps 07/05/24 Results & Data (ED) Vital Signs Vital Signs - 24 hr 07/18/24 23:30 07/18/24 23:48 07/19/24 02:00 Temperature 36.8 C Temperature Source Oral Pulse Rate 102 H 78 Pulse Rate [Apical] 77 Respiratory Rate 16 Respiratory Effort / Characteristics Non-Labored Spontaneous Respiratory Depth Normal Respiratory Pattern Regular Blood Pressure 120/82 Blood Pressure [Left Arm] 126/79 Blood Pressure Mean 94 Blood Pressure Mean [Left Arm] 94 Blood Pressure Position [Left Arm] Lying Pulse Oximetry 95 97 Oxygen Delivery Method Room Air Room Air Sepsis Recent Fever Within 48 Hours Yes Sepsis New/Unexplained Change in Mental Status No Sepsis Action Taken by Nursing No Action Required Laboratory Data 07/19/24 06:51 07/19/24 06:51 Lab Results 07/19/24 07/19/24 Range/Units 00:04 00:39 WBC 7.01 (4.8-10.8) K/ul RBC 4.55 L (4.70-6.10) M/uL Hgb 14.9 (14.0-18.0) g/dl Hct 41.7 L (42.0-52.0) % MCV 91.6 (80.0-100.0) fL MCH 32.7 (25.0-34.0) pg MCHC 35.7 (32.0-36.0) g/dL RDW Std Deviation 45.9 (36.4-46.3) fL RDW Coeff of Madeleine 13.6 (11.5-14.5) % Plt Count 199 (130-400) K/uL MPV 9.8 (9.4-12.4) fL Immature Gran % (Auto) 0.3 % Neut % (Auto) 76.8 % Lymph % (Auto) 12.3 % [place] % (Auto) 7.8 % Eos % (Auto) 2.4 % Baso % (Auto) 0.4 % Neut # (Auto) 5.38 (1.40-6.50) K/uL Lymph # (Auto) 0.86 L (1.20-3.40) K/uL [place] # (Auto) 0.55 (0.11-0.59) K/uL Eos # (Auto) 0.17 (0.00-0.50) K/uL Baso # (Auto) 0.03 (0.00-0.20) K/uL Immature Gran # (Auto) 0.02 (0.01-0.20) K/uL Sodium 136 (136-145) mmol/L Potassium 3.9 (3.5-5.1) mmol/L Chloride 103 (98-107) mmol/L Carbon Dioxide 26 (21-32) mmol/L Anion Gap 7 (3-11) BUN 21 (6-23) mg/dl Creatinine 1.18 (0.6-1.4) mg/dl Est Cr Clr Drug Dosing 76.0 ml/min eGFR 71.53 BUN/Creatinine Ratio 17.8 (10-20) Glucose 111 H (70-99(Fasting)) mg/dl Lactate 0.9 (0.4-2.0) mmol/L Calcium 9.0 (8.6-10.3) mg/dl Magnesium 2.0 (1.7-2.4) mg/dl Total Bilirubin 1.3 H (0.2-1.0) mg/dl Direct Bilirubin 0.1 (0-0.2) mg/dl AST 18 (13-39) U/L ALT 11 (7-52) U/L Alkaline Phosphatase 65 (34-104) U/L Troponin I High Sens 6.5 (0-20) pg/ml Total Protein 6.9 (6.0-8.3) gm/dl Albumin 4.0 (3.4-5.0) gm/dl Procalcitonin 2.98 H (0-0.5) ng/ml Urine Color Yellow Urine Appearance Clear (Clear) Urine pH 6.0 (4.5-7.5) Ur Specific [place] 1.007 (1.000-1.030) Urine Protein Negative (Negative) Urine Glucose (UA) Negative (Negative) Urine Ketones Negative (Negative) Urine Blood 3+ H (Negative) Urine Nitrite Positive A (Negative) Urine Bilirubin Negative (Negative) Urine Urobilinogen Negative (Negative) Ur Leukocyte Esterase 2+ H (Negative) Urine WBC (Auto) 21-50 H (0-5) /hpf Urine RBC (Auto) 11-20 H (0-2) /hpf U Hyaline Cast (Auto) 0-2 (0-2) /lpf U Epithel Cells (Auto) 0-2 (0-2) /hpf Urine Bacteria (Auto) 1+ H (None Seen) Administered Medications Acetaminophen (Acetaminophen 325 Mg Tab) 650 mg PO Q4H PRN PRN Reason: pain/fever Stop: 08/18/24 04:02 Last Admin: 07/19/24 14:13 Dose: 650 mg Documented By: Admin: 07/19/24 04:18 Dose: 650 mg Documented By: PNPieter Discontinued Medications Ceftriaxone Sodium (Rocephin) 2,000 mg in 50 mls @ 100 mls/hr IV NOW STA Stop: 07/19/24 01:43 Last Infusion: 07/19/24 02:22 Dose: Infused Documented By: Admin: 07/19/24 01:40 Dose: 100 mls/hr Documented By: Iothalamate Meglumine (Iothalamate Meglumine Ii 17.2% 250 Ml Vial) 175 ml INSTIL ONCE ONE Stop: 07/19/24 11:38 Last Admin: 07/19/24 12:56 Dose: Not Given Documented By: [facility] Discharge Plan Visit Data Chief Complaint: Flank Pain Stated Complaint: FEVER, POST SURG, RT SIDE PAIN PAIN, CATHED ED Provider: Michelle Kingston Discharge Problem: Complicated UTI (urinary tract infection), Fever Patient Disposition: Admitted As Inpatient Discharge Instructions Interventions: ED Discharge Assessment Last Done: 07/19/24 03:28
[2024-07-19 00:23] LABS: Basophils # (auto) 0.03 K/uL (0.00-0.20); Basophils % (auto) 0.4 %; Eosinophils # (auto) 0.17 K/uL (0.00-0.50); Eosinophils % (auto) 2.4 %; Hematocrit (blood only) 41.7 % (42.0-52.0); Hemoglobin 14.9 g/dl (14.0-18.0); Immature Granulocytes # (auto) 0.02 K/uL (0.01-0.20); Immature Granulocytes % (auto) 0.3 %; Lymphocytes # (auto) 0.86 K/uL (1.20-3.40); Lymphocytes % (auto) 12.3 %; Mean Corpuscular Hemoglobin 32.7 pg (25.0-34.0); Mean Corpuscular Hgb Conc 35.7 g/dL (32.0-36.0); Mean Corpuscular Volume 91.6 fL (80.0-100.0); Mean Platelet Volume 9.8 fL (9.4-12.4); Monocytes # (auto) 0.55 K/uL (0.11-0.59); Monocytes % (auto) 7.8 %; Neutrophils # (auto) 5.38 K/uL (1.40-6.50); Neutrophils % (auto) 76.8 %; Platelet Count 199 K/uL (130-400); RDW Coefficient of Variation 13.6 % (11.5-14.5); RDW Standard Deviation 45.9 fL (36.4-46.3); Red Blood Count 4.55 M/uL (4.70-6.10); White Blood Count 7.01 K/ul (4.8-10.8)
[2024-07-19 00:40] LABS: BUN Creatinine Ratio 17.8 (10-20); Bilirubin Direct 0.1 mg/dl (0-0.2); Bilirubin,Total 1.3 mg/dl (0.2-1.0); Potassium 3.9 mmol/L (3.5-5.1); Total Protein 6.9 gm/dl (6.0-8.3)
[2024-07-19 00:46] LABS: Troponin I High Sensitivity 6.5 pg/ml (0-20)
[2024-07-19 00:53] LABS: Appearance Urine Clear (Clear); Bacteria Urine Automated 1+ (None Seen); Bilirubin Urine Negative (Negative); Blood Urine 3+ (Negative); Cast Urine Automated 0-2 /lpf (0-2); Color Urine Yellow; Epithelial Cell Urine Auto 0-2 /hpf (0-2); Glucose Urine UA Negative (Negative); Ketones Urine Negative (Negative); Leukocyte Esterase Urine 2+ (Negative); Nitrite Urine Positive (Negative); Protein Urine Negative (Negative); Specific Gravity Urine 1.007 (1.000-1.030); Urobilinogen Urine Negative (Negative); WBC Urine Automated 21-50 /hpf (0-5)
--- NOTE | 2024-07-19 01:06 | XRay Report ---
EXAM: XR chest 1V portable CLINICAL HISTORY: SEPSIS JMF TECHNIQUE: An X-ray image of the chest is obtained in AP projection. COMPARISON: No prior studies are available for comparison. FINDINGS: Pulmonary Parenchyma: No evidence of consolidation, collapse, or focal opacities. No size significant pulmonary nodules are identified. No evidence of pleural effusion or pleural thickening. Bilateral prominent hilar markings. Heart and Mediastinum: Heart size could not be commented upon due to AP projection. No mediastinal masses. No hilar or mediastinal lymphadenopathy. Bony Thorax: The bony thorax appears intact without fractures or deformities. Soft Tissues: Soft tissues overlying the chest wall are unremarkable. IMPRESSION: 1. No consolidation or pleural effusion. 2. Bilateral prominent hilar markings could be Nonspecific/vascular congestion. 3. Clinical correlation is recommended. Electronically signed by Marce Castañeda 07-19-2024 01:05 AM
[2024-07-19] MEDS: cefTRIAXone SODIUM 2,000 MG/50 ML BAG IV STA (01:40)
--- NOTE | 2024-07-19 02:23 | History & Physical Report ---
Date of Service July 19, 2024 Assessment & Plan (1) Complicated UTI (urinary tract infection): Plan: 59-year-old male with past medical history significant for hyperlipidemia, history of oral apththous ulcers who recently couple of weeks ago had robotic assisted laparoscopic partial cystectomy with extensive lysis of additions for bladder diverticulum and also had cystoscopy with insertion of stent in the right ureter comes because of severe abdominal pain and chills and fevers. Patient says last Monday he had a low-grade fever. And Monday he had severe abdominal pain in the flank region with nausea and he felt almost passing out. He thought he may have dehydrated as his caballero bag was not full and drank lot of water and seemed to improved. But in the Monday night again had a lot of chills and constant pain in the right flank region where his stent is placed. morning felt okay and went to work and came back at 1 PM but again started feeling chills and fevers of 102 degrees and decided to come to the ER. Patient had 1 week course of antibiotic Keflex after the procedure. Patient still has Caballero catheter. Once in a while he is noticing small amount of blood in the catheter bag. Denies any diarrhea or constipation. No chest pain or shortness of breath. No cough. No headache. No blurred vision. No runny nose or sore throat. Currently resting comfortably and hemodynamically stable. Complicated UTI Recently had bladder procedure with stent in right ureter having fever and chills and pain UA positive Empiric Rocephin Will follow cultures IV fluids Continue Flomax Consult urology DVT prophylaxis SCDs for now Disposition Medical floor Full code. History of Present Illness Chief Complaint: Abdominal pain and UTI Primary Care Provider: Narciso Wilhelm DO 59-year-old male with past medical history significant for hyperlipidemia, history of oral apththous ulcers who recently couple of weeks ago had robotic assisted laparoscopic partial cystectomy with extensive lysis of additions for bladder diverticulum and also had cystoscopy with insertion of stent in the right ureter comes because of severe abdominal pain and chills and fevers. Patient says last Monday he had a low-grade fever. And Monday afternoon he had severe abdominal pain in the flank region with nausea and he felt almost passing out. He thought he may have dehydrated as his caballero bag was not full and drank lot of water and seemed to improved. But in the Monday night again had a lot of chills and constant pain in the right flank region where his stent is placed. morning felt okay and went to work and came back at 1 PM but again started feeling chills and fevers of 102 degrees and decided to come to the ER. Patient had 1 week course of antibiotic Keflex after the procedure. Patient still has Caballero catheter. Once in a while he is noticing small amount of blood in the catheter bag. Denies any diarrhea or constipation. No chest pain or shortness of breath. No cough. No headache. No blurred vision. No runny nose or sore throat. Currently resting comfortably and hemodynamically stable. Past medical history. As mentioned above Past surgical history. Colonoscopy. Repair of inguinal hernia. Social history. No smoking. Alcohol rarely. No drug use. Family history. Mother has asthma. Diabetes. Hypertension. Father has hypertension. BPH. Sister has asthma. Maternal grandfather had stroke. Maternal grandmother had stroke. Allergies Allergy/AdvReac Type Severity Reaction Status Date / Time grass pollen-perennial rye, Allergy Intermediate CONGESTION Verified 07/04/24 11:35 standar Horse/Equine Containing Allergy Intermediate ASTHMA Verified 07/04/24 11:35 Products cat dander AdvReac Intermediate ASTHMA Verified 07/04/24 11:35 SYMPTOMS ELEPHANTS Allergy Intermediate ASTHMA Uncoded 07/04/24 11:35 Home Medications Medication Instructions Recorded Confirmed Type tamsulosin 0.4 mg capsule 0.4 mg PO HS #30 caps 07/05/24 07/19/24 Rx Past Med/Surg History Problem List Complicated UTI (urinary tract infection) Encounter for pre-operative examination Right nephrolithiasis Bladder diverticulum Flank pain Incomplete emptying of bladder BPH NOS w ur obs/LUTS Medical History Incomplete emptying of bladder BPH NOS w ur obs/LUTS Bladder diverticulum Surgical History Hx of colonoscopy History of hernia repair as a baby Social History Smoking Status: Never smoker Second Hand Exposure: No; Do You Dip or Chew Tobacco: No; Tobacco Cessation Education Requested by Patient: No Hx Alcohol Use: No Hx Substance Use: No Preferred Language: Croatian Communication Ability: Effective Elastic Tape Inserter Required: No Beliefs That Will Affect Care: None marital status: Current Living Situation: Spouse current occupational status: employed Other Information That Helps Us Care for You: No Feels Safe at Home: Yes Assistive Devices: None Review of Systems Review of Systems: All systems reviewed & are unremarkable except as noted in HPI & below Physical Exam Physical Exam: General- Not in distress Head- atraumatic Eyes- PERRL. ENT- oropharynx clear Neck- supple, no JVD. Lungs- clear to auscultation no wheezing or crackles Heart- regular rate and rhythm; no murmur, no gallop. Abdomen- normal bowel sounds, soft, nontender, no distension. Extremities- no pretibial edema, no erythema seen. Neuro- alert, oriented ; PERRL, no facial palsy; no dysarthria; moves extremities. Results & Data Results & Data Vital Signs (Past 12 Hours) Vital Signs Temp Pulse BP Pulse Ox O2 Del Method 07/18/24 23:48 78 07/18/24 23:30 36.8 C 102 H 120/82 95 Room Air Diagnostic Findings Laboratory Results WBC 7.01 K/ul (4.8-10.8) 07/19/24 00:04 RBC 4.55 M/uL (4.70-6.10) L 07/19/24 00:04 Hgb 14.9 g/dl (14.0-18.0) 07/19/24 00:04 Hct 41.7 % (42.0-52.0) L 07/19/24 00:04 MCV 91.6 fL (80.0-100.0) 07/19/24 00:04 MCH 32.7 pg (25.0-34.0) 07/19/24 00:04 MCHC 35.7 g/dL (32.0-36.0) 07/19/24 00:04 RDW Std Deviation 45.9 fL (36.4-46.3) 07/19/24 00:04 RDW Coeff of Madeleine 13.6 % (11.5-14.5) 07/19/24 00:04 Plt Count 199 K/uL (130-400) 07/19/24 00:04 MPV 9.8 fL (9.4-12.4) 07/19/24 00:04 Immature Gran % (Auto) 0.3 % 07/19/24 00:04 Neut % (Auto) 76.8 % 07/19/24 00:04 Lymph % (Auto) 12.3 % 07/19/24 00:04 [place] % (Auto) 7.8 % 07/19/24 00:04 Eos % (Auto) 2.4 % 07/19/24 00:04 Baso % (Auto) 0.4 % 07/19/24 00:04 Neut # (Auto) 5.38 K/uL (1.40-6.50) 07/19/24 00:04 Lymph # (Auto) 0.86 K/uL (1.20-3.40) L 07/19/24 00:04 [place] # (Auto) 0.55 K/uL (0.11-0.59) 07/19/24 00:04 Eos # (Auto) 0.17 K/uL (0.00-0.50) 07/19/24 00:04 Baso # (Auto) 0.03 K/uL (0.00-0.20) 07/19/24 00:04 Immature Gran # (Auto) 0.02 K/uL (0.01-0.20) 07/19/24 00:04 Sodium 136 mmol/L (136-145) 07/19/24 00:04 Potassium 3.9 mmol/L (3.5-5.1) 07/19/24 00:04 Chloride 103 mmol/L (98-107) 07/19/24 00:04 Carbon Dioxide 26 mmol/L (21-32) 07/19/24 00:04 Anion Gap 7 (3-11) 07/19/24 00:04 BUN 21 mg/dl (6-23) 07/19/24 00:04 Creatinine 1.18 mg/dl (0.6-1.4) 07/19/24 00:04 Est Cr Clr Drug Dosing 76.0 ml/min 07/19/24 00:04 eGFR 71.53 07/19/24 00:04 BUN/Creatinine Ratio 17.8 (10-20) 07/19/24 00:04 Glucose 111 mg/dl (70-99(Fasting)) H 07/19/24 00:04 Lactate 0.9 mmol/L (0.4-2.0) 07/19/24 00:04 Calcium 9.0 mg/dl (8.6-10.3) 07/19/24 00:04 Magnesium 2.0 mg/dl (1.7-2.4) 07/19/24 00:04 Total Bilirubin 1.3 mg/dl (0.2-1.0) H 07/19/24 00:04 Direct Bilirubin 0.1 mg/dl (0-0.2) 07/19/24 00:04 AST 18 U/L (13-39) 07/19/24 00:04 ALT 11 U/L (7-52) 07/19/24 00:04 Alkaline Phosphatase 65 U/L (34-104) 07/19/24 00:04 Troponin I High Sens 6.5 pg/ml (0-20) 07/19/24 00:04 Total Protein 6.9 gm/dl (6.0-8.3) 07/19/24 00:04 Albumin 4.0 gm/dl (3.4-5.0) 07/19/24 00:04 Procalcitonin 2.98 ng/ml (0-0.5) H 07/19/24 00:04 Urine Color Yellow 07/19/24 00:39 Urine Appearance Clear (Clear) 07/19/24 00:39 Urine pH 6.0 (4.5-7.5) 07/19/24 00:39 Ur Specific [place] 1.007 (1.000-1.030) 07/19/24 00:39 Urine Protein Negative (Negative) 07/19/24 00:39 Urine Glucose (UA) Negative (Negative) 07/19/24 00:39 Urine Ketones Negative (Negative) 07/19/24 00:39 Urine Blood 3+ (Negative) H 07/19/24 00:39 Urine Nitrite Positive (Negative) A 07/19/24 00:39 Urine Bilirubin Negative (Negative) 07/19/24 00:39 Urine Urobilinogen Negative (Negative) 07/19/24 00:39 Ur Leukocyte Esterase 2+ (Negative) H 07/19/24 00:39 Urine WBC (Auto) 21-50 /hpf (0-5) H 07/19/24 00:39 Urine RBC (Auto) 11-20 /hpf (0-2) H 07/19/24 00:39 U Hyaline Cast (Auto) 0-2 /lpf (0-2) 07/19/24 00:39 U Epithel Cells (Auto) 0-2 /hpf (0-2) 07/19/24 00:39 Urine Bacteria (Auto) 1+ (None Seen) H 07/19/24 00:39 Impressions Chest X-Ray 07/18/24 23:37 EXAM: XR chest 1V portable CLINICAL HISTORY: SEPSIS JMF TECHNIQUE: An X-ray image of the chest is obtained in AP projection. COMPARISON: No prior studies are available for comparison. FINDINGS: Pulmonary Parenchyma: No evidence of consolidation, collapse, or focal opacities. No size significant pulmonary nodules are identified. No evidence of pleural effusion or pleural thickening. Bilateral prominent hilar markings. Heart and Mediastinum: Heart size could not be commented upon due to AP projection. No mediastinal masses. No hilar or mediastinal lymphadenopathy. Bony Thorax: The bony thorax appears intact without fractures or deformities. Soft Tissues: Soft tissues overlying the chest wall are unremarkable. IMPRESSION: 1. No consolidation or pleural effusion. 2. Bilateral prominent hilar markings could be Nonspecific/vascular congestion. 3. Clinical correlation is recommended. Electronically signed by Marce Castañeda 07-19-2024 01:05 AM ECG Additional Comments: ECG. Normal sinus rhythm rate of 81. Nonspecific T wave abnormality now evident in lateral leads. Code Status & VTE Plan VTE Prophylaxis Plan VTE Prophylaxis will be ordered: Yes
[2024-07-19] MEDS ORDERED: POLYETHYLENE (MIRALAX) 17 GM PACK PO PRN (04:03)
[2024-07-19] MEDS ORDERED: ONDANSETRON INJ 2 MG/ML 2 ML VIAL IV PRN (04:03)
[2024-07-19] MEDS: ACETAMINOPHEN 325 MG TAB PO PRN (04:18)
--- NOTE | 2024-07-19 05:12 | Urology Consultation ---
<Statement entered by Ori Tuttle MD - 07/19/24 07:40> I have discussed Mr. Gaytan' Case with Devaughn Adorno PA-C and agree with the above documentation. 59-year-old male s/p partial cystectomy on 07/04/2024 for bladder diverticulum. History is suspicious for UTI. Blood and urine cultures are pending and he is currently receiving ceftriaxone. Agree with broad-spe ctrum antibiotics, narrowing coverage as culture data becomes available. Will plan to discuss with his operating surgeon whether there is any role for abdominal imaging at this time. Urology will follow along. -Ori Tuttle MD. Date of Consultation July 19, 2024 Assessment & Plan (1) Complicated UTI (urinary tract infection): Patient has been admitted on the hospitalist service. From a urologic perspective we recommend the following: Patient has been placed on antibiotics form of Rocephin. Appropriate cultures have been sent and he should be followed for. Antibiotic should be continued and tailored based on the results of culture data Serial labs to be followed Would recommend maintaining the Flynn catheter for the present time to ensure maximal bladder drainage for the present time The patient notes that he was scheduled for potential voiding trial in the office in the next 1 to 2 days; will notify Dr. Maldonado of patient's admission and a determination be made when voiding trial consideration of removing Flynn catheter should be pursued History of Present Illness Reason for Consultation: UTI with recent urologic procedure Attending Physician: Nicole Dias MD History of Present Illness This is a patient who is well-known to [facility] physician group urology. On 07/04/2024 patient underwent a partial cystectomy and insertion of a right ureteral stent. Patient was discharged home the day following his procedure. He notes that he was doing well initially, however approximate 2 days ago the patient says that he thinks he performed some excess activity and he became dehydrated. He subsidy developed some back pain which seem to improve after he rehydrated himself. He then noticed that he began to have intermittent chills and fevers as high as 102 for the past 2 days. Again, he notes some back pain which seems to be slightly worse on the right. He denies any abdominal pain. He denies any nausea or vomiting. Patient notes that he did have a Flynn catheter placed at the time of his procedure which has been in place since. He notes that the Flynn is not become clogged and has been pain since his procedure. He does note that he has had some intermittent blood-tinged urine in his catheter. Because of his fevers she did present to the emergency department. Since arrival to hospital patient has had labs and imaging which I independently reviewed. Chest x-ray showed no evidence of consolidation or pleural effusion. There is some nonspecific bilateral hilar markings felt to potentially represent nonspecific vascular congestion. Labs included CBC were white blood cell count platelet count were normal. Patient's hemoglobin was normal. Hematocrit is 41.7. Chemistry profile showed sodium, potassium, BUN, and creatinine are normal. Urinalysis was positive for nitrites. There is 2+ leukocyte esterase and pyuria with 21-50 white blood cells per high-power field. There is also 1+ bacteria on the study. At the time of my interview he was resting comfortably in bed he was no distress. Allergies Allergy/AdvReac Type Severity Reaction Status Date / Time grass pollen-perennial rye, Allergy Intermediate CONGESTION Verified 07/04/24 11:35 standar Horse/Equine Containing Allergy Intermediate ASTHMA Verified 07/04/24 11:35 Products cat dander AdvReac Intermediate ASTHMA Verified 07/04/24 11:35 SYMPTOMS ELEPHANTS Allergy Intermediate ASTHMA Uncoded 07/04/24 11:35 Home Medications Medication Instructions Recorded Confirmed Type tamsulosin 0.4 mg capsule 0.4 mg PO HS #30 caps 07/05/24 07/19/24 Rx Patient History Medical History Incomplete emptying of bladder BPH NOS w ur obs/LUTS Bladder diverticulum Surgical History Hx of colonoscopy History of hernia repair as a baby Social History Smoking Status: Never smoker Second Hand Exposure: No; Do You Dip or Chew Tobacco: No; Hx Alcohol Use: Yes Alcohol type: beer Hx Substance Use: No Preferred Language: Nicaraguan Communication Ability: Effective In Store Demonstrator Required: No Beliefs That Will Affect Care: None marital status: Current Living Situation: Spouse current occupational status: employed Feels Safe at Home: Yes Assistive Devices: None Review of Systems Review of Systems: All systems reviewed & are unremarkable except as noted in HPI & below Physical Exam Constitutional: WD/WN, vitals as above Eyes: no conjunctival abnormality ENMT: Ears: no hearing impairment and no external ear abnormality Mouth: no oropharynx abnormality Neck: trachea midline Respiratory: normal respiratory effort; no respiratory distress and no labored breathing Cardiovascular: Rate/Rhythm: regular rate and regular rhythm Gastrointestinal (Abdomen): Abdomen is soft and nondistended. There is no pain with palpation or rigidity. There is no rebound tenderness or guarding. All surgical incisions are healing well without signs of infection Musculoskeletal: No calf tenderness Skin: no rashes Neurologic: moves all extremities Psychiatric: A+Ox3, euthymic affect Genitourinary: Flynn catheter is in place and is draining clear yellow urine with some sediment in the tubing. The urine is nonbloody. The Flynn catheter appears patent. There is slight CVA tenderness with percussion on the right not on the left. Results & Data Vital Signs (Past 12 Hours) Vital Signs Temp Pulse Pulse Resp BP BP Pulse Ox 07/19/24 04:03 37.5 C 81 18 137/79 96 07/19/24 03:28 07/19/24 02:00 77 16 126/79 97 07/18/24 23:48 78 07/18/24 23:30 36.8 C 102 H 120/82 95 O2 Del Method 07/19/24 04:03 Room Air 07/19/24 03:28 Room Air 07/19/24 02:00 Room Air 07/18/24 23:48 07/18/24 23:30 Room Air PG Care Time/CCT Total # of Minutes Spent Total Time Spent with Patient: Total time spent is greater than 50% in coordination of care (as documented) at patient's floor/unit and/or counseling patient: Coding Level of Care Code None Diagnoses Complicated UTI (urinary tract infection) N39.0
[2024-07-19 07:15] LABS: Basophils # (auto) 0.03 K/uL (0.00-0.20); Basophils % (auto) 0.4 %; Eosinophils # (auto) 0.25 K/uL (0.00-0.50); Eosinophils % (auto) 3.5 %; Hematocrit (blood only) 38.8 % (42.0-52.0); Hemoglobin 13.9 g/dl (14.0-18.0); Immature Granulocytes # (auto) 0.02 K/uL (0.01-0.20); Immature Granulocytes % (auto) 0.3 %; Lymphocytes # (auto) 1.28 K/uL (1.20-3.40); Lymphocytes % (auto) 17.7 %; Mean Corpuscular Hemoglobin 32.9 pg (25.0-34.0); Mean Corpuscular Hgb Conc 35.8 g/dL (32.0-36.0); Mean Corpuscular Volume 91.9 fL (80.0-100.0); Mean Platelet Volume 9.9 fL (9.4-12.4); Monocytes # (auto) 0.83 K/uL (0.11-0.59); Monocytes % (auto) 11.5 %; Neutrophils # (auto) 4.82 K/uL (1.40-6.50); Neutrophils % (auto) 66.6 %; Platelet Count 201 K/uL (130-400); RDW Coefficient of Variation 13.6 % (11.5-14.5); RDW Standard Deviation 45.9 fL (36.4-46.3); Red Blood Count 4.22 M/uL (4.70-6.10); White Blood Count 7.23 K/ul (4.8-10.8)
[2024-07-19 07:29] LABS: BUN Creatinine Ratio 17.1 (10-20); Calcium 8.4 mg/dl (8.6-10.3); Creatinine Clr Calc Pharmacy 85.4 ml/min; Potassium 3.9 mmol/L (3.5-5.1)
--- NOTE | 2024-07-19 11:02 | Urology Progress Note ---
Date of Service July 19, 2024 Assessment & Plan (1) Complicated UTI (urinary tract infection): (2) Bladder diverticulum: Plan 59 yo male who is s/p partial cystectomy and right stent placement on 07/04/2024 for bladder diverticulum admitted with suspected UTI -Afebrile with stable vitals -Labs today show no leukocytosis, hemoglobin 13.9, creatinine 1.05 -Urine and blood cultures pending -Flynn draining clear yellow urine -Given his reported fever at home and recent bladder repair, will obtain imaging with a CT abdomen pelvis wo con as well as cystogram to evaluate the bladder -Continue broad-spectrum antibiotics and narrow as culture data becomes available -Continue supportive care -Maintain Flynn catheter -Urology will follow Plan reviewed with Dr. Maldonado. Admission and Anticipated Discharge Date Admission Date: July 19, 2024 Subjective Patient seen at bedside today Awake and resting in bed on arrival No acute distress Reports he is feeling better today Still with some mild right flank pain Flynn draining clear yellow urine No fever, chills, nausea, vomiting Has been NPO Review of Systems Constitutional: as per Subjective / HPI Genitourinary: + as per Subjective / HPI Physical Exam Constitutional: no acute distress Respiratory: no respiratory distress and no labored breathing Gastrointestinal (Abdomen): Percussion/Palpation: abdomen soft; abdomen nontender, no guarding and abdomen not rigid Surgical incisions are healing well. Skin: No visible rashes or lesions to exposed skin areas Neurologic: awake Psychiatric: A+Ox3, euthymic affect Genitourinary: Flynn draining clear yellow urine. Mild right flank tenderness with palpation. Results & Data Vital Signs (Past 12 Hours) Vital Signs Temp Pulse Pulse Resp BP BP Pulse Ox 07/19/24 08:15 37.0 C 84 16 109/67 95 07/19/24 04:38 37.5 C 81 18 137/79 96 07/19/24 04:03 37.5 C 81 18 137/79 96 07/19/24 03:28 07/19/24 02:00 77 16 126/79 97 07/18/24 23:48 78 07/18/24 23:30 36.8 C 102 H 120/82 95 O2 Del Method 07/19/24 08:15 Room Air 07/19/24 04:38 Room Air 07/19/24 04:03 Room Air 07/19/24 03:28 Room Air 07/19/24 02:00 Room Air 07/18/24 23:48 07/18/24 23:30 Room Air PG Care Time/CCT Total # of Minutes Spent Total Time Spent with Patient: Total time spent is greater than 50% in coordination of care (as documented) at patient's floor/unit and/or counseling patient: Coding Level of Care Code None Diagnoses Complicated UTI (urinary tract infection) N39.0 Bladder diverticulum N32.3
--- NOTE | 2024-07-19 12:34 | CT Scan Report ---
CT abdomen pelvis wo/w con HISTORY: 59 years-old Male Fever, recent bladder repair acute transabdominal pain with fever COMPARISON: KUB 07/04/2024 TECHNIQUE: Multiple axial CT images of the abdomen and pelvis were obtained with and without IV contr ast. A dose lowering technique was used consistent with the principals of GLENN. Contrast was adminis tered in retrograde fashion into the patient's urinary bladder catheter. FINDINGS: Subsegmental bibasilar atelectasis. No pneumoperitoneum. The spleen measures 13.5 cm in length. Unrem arkable pancreas. Moderate renal gland thickening suggestive of hyperplasia. Cholelithiasis without C T evidence of acute cholecystitis. Unremarkable liver. There is nonspecific bilateral perinephric stranding. There are a few punctate nonobstructing calculi in the kidneys. There are a few small left-sided renal sinus cysts. A right ureteral stent is in gabriela ce. There is mild right-sided hydroureteronephrosis. The proximal portion of the stent is partially f olded on itself, unchanged from the prior radiographs. No ureteral calculi identified. A Flynn cathet er is in place. Air within the urinary bladder lumen with small focus of air within the superior bebe ecting system of the right kidney. Prostate is mildly enlarged. Circumferential wall thickening of th e bladder with perivesicular stranding. Trace ascites. Asymmetric inflammatory stranding tracks along the right ureter. Trabeculation of the bladder is noted. No discrete intraluminal mass within the bl adder lumen or extravasation of contrast. There is a small diverticulum of the right lateral urinary bladder. Reflux of contrast into the right ureter and renal collecting system demonstrate urothelial thickening. Asymmetric inflammatory stranding of the right seminal vesicles. No abdominal aortic aneurysm. No lymphadenopathy. No bowel obstruction or bowel wall thickening. Smal l hiatal hernia. Normal appendix. No acute fracture. IMPRESSION: 1. Urinary bladder wall thickening without extravasation of contrast to suggest urinary bladder wall injury. 2. Mild right-sided hydroureteronephrosis with unchanged positioning of the right ureteral stent. 3. Urothelial thickening of the right renal collecting system and ureter with perinephric and periren al inflammatory stranding. Correlate with urinalysis. 4. Punctate nonobstructing bilateral nephrolithiasis. 5. Cholelithiasis. 6. Additional findings as above. ACT 112: Negative or not required by law. The above report was generated using voice recognition software. It may contain grammatical, syntax o r spelling errors. Electronically signed by: Robles Mercado M.D. 07/19/2024 12:32 PM
[2024-07-19] MEDS: IOTHALAMATE MEGLUMINE II 17.2% 250 ML VIAL INSTIL ONE (12:56)
--- NOTE | 2024-07-19 14:31 | Communication Note ---
Date of Service: July 19, 2024 Patient seen and examined Reports right flank pain is improved Discussed with Urology after review of CT abd done today Uro recommends no further procedure today. Diet ordered. They will do voiding trial tomorrow Continue IV ceftriaxone for now Follow up cultures Agree with other plans as detailed in H/P this AM
--- NOTE | 2024-07-19 14:49 | Electrocardiogram Report ---
Test Reason : Blood Pressure : */* mmHG Vent. Rate : 81 BPM Atrial Rate : 81 BPM P-R Int : 134 ms QRS Dur : 88 ms QT Int : 344 ms P-R-T Axes : 52 36 18 degrees QTcB Int : 399 ms Normal sinus rhythm Normal ECG When compared with ECG of 10-Jun-2024 15:04, No significant change Confirmed by Mark Dinero ([id number]) on 07/19/2024 2:49:37 PM Referred By: REFERRED SELF Confirmed By: Mark Dinero
[2024-07-19] MEDS: TAMSULOSIN HCL 0.4 MG CAP PO SCH (20:55)
[2024-07-19] MEDS: DOCUSATE SODIUM 100 MG CAP PO SCH (22:42)
[2024-07-19] MEDS: cefTRIAXone SODIUM 2,000 MG/50 ML BAG IV SCH (22:52)
[2024-07-20 07:02] LABS: Hematocrit (blood only) 42.3 % (42.0-52.0); Hemoglobin 14.9 g/dl (14.0-18.0); Mean Corpuscular Hemoglobin 32.3 pg (25.0-34.0); Mean Corpuscular Hgb Conc 35.2 g/dL (32.0-36.0); Mean Corpuscular Volume 91.8 fL (80.0-100.0); Mean Platelet Volume 9.8 fL (9.4-12.4); Platelet Count 213 K/uL (130-400); RDW Coefficient of Variation 13.5 % (11.5-14.5); RDW Standard Deviation 45.6 fL (36.4-46.3); Red Blood Count 4.61 M/uL (4.70-6.10); White Blood Count 6.81 K/ul (4.8-10.8)
[2024-07-20 07:44] LABS: BUN Creatinine Ratio 15.3 (10-20); Calcium 8.8 mg/dl (8.6-10.3); Creatinine Clr Calc Pharmacy 80.8 ml/min; Potassium 4.1 mmol/L (3.5-5.1)
--- NOTE | 2024-07-20 09:01 | Urology Progress Note ---
Date of Service July 20, 2024 Assessment & Plan (1) Complicated UTI (urinary tract infection): (2) Bladder diverticulum: Plan 59 yo male s/p partial cystectomy and right stent placement on 07/04/2024. He seems to be responding appropriately to antibiotics. Would continue broad- spectrum coverage and narrow once culture data becomes available. Voiding trial this morning. If he has not voided in 3-4 hours, would recommend bladder scan. Also would be reasonable to check postvoid residuals. Urology will follow along Admission and Anticipated Discharge Date Admission Date: July 19, 2024 Subjective Feeling well this morning, denies any fevers or chills Having some superficial skin sensitivity on the right side of abdomen. Flynn catheter was removed this morning, has not voided yet Tolerating a diet with no nausea or vomiting. Blood cultures negative at 24 hours, urine culture pending. Remains on ceftriaxone. Physical Exam Physical Exam: Well-appearing, NAD Incisions intact. Right sided abdominal skin tenderness, no suspicious lesions Results & Data Vital Signs (Past 12 Hours) Vital Signs Temp Pulse Pulse Resp BP Pulse Ox O2 Del Method 07/20/24 06:59 36.9 C 73 16 109/71 95 Room Air 07/20/24 06:09 37 C 75 94 Room Air 07/19/24 22:46 37.7 C H 89 16 102/62 93 Room Air PG Care Time/CCT Total # of Minutes Spent Total Time Spent with Patient: Total time spent is greater than 50% in coordination of care (as documented) at patient's floor/unit and/or counseling patient: Coding Level of Care Code 17981 SUB INP/OBS CARE 25MIN Diagnoses Complicated UTI (urinary tract infection) N39.0 Bladder diverticulum N32.3
--- NOTE | 2024-07-20 11:22 | Hospitalist Progress Note ---
Date of Service July 20, 2024 Assessment & Plan (1) Complicated UTI (urinary tract infection): Plan: 59-year-old male with past medical history significant for hyperlipidemia, history of oral apththous ulcers who recently couple of weeks ago had robotic assisted laparoscopic partial cystectomy with extensive lysis of adhesions for bladder diverticulum and also had cystoscopy with insertion of stent in the right ureter comes because of severe abdominal pain and chills and fevers. Complicated UTI Recently had bladder procedure with stent in right ureter CT abd showed unchanged position of ureteral stent (R). Urothelial thickening of right renal collecting system and ureter with perinephric and perirenal inflammatory stranding Continue IV ceftriaxone Awaiting Urine culture Uro evaluation knows Flynn removed today. Passed voiding trial DVT prophylaxis SCDs for now Full code. I spent a total of 40 minutes coordinating, documenting and providing care for this patient excluding time spent in performance of separately billed services Admission and Anticipated Discharge Date Admission Date: July 19, 2024 Subjective Patient seen and examined Reports feeling better Right flank pain is improving No other complaints Physical Exam Constitutional: + well hydrated; no acute distress Eyes: PERRL, conjunctivae normal, anicteric sclerae ENMT: external ear and nose normal, oropharynx normal Respiratory: normal respiratory effort, lungs clear to auscultation Cardiovascular: Rate/Rhythm: regular rate and regular rhythm Gastrointestinal (Abdomen): normal bowel sounds, soft, nontender, no hepatosplenomegaly Musculoskeletal: no cyanosis or clubbing, extremities motor strength 5/5 Neurologic: PERRL, EOMI, accommodation nl, no face palsy, no dysarthria Psychiatric: A+Ox3, euthymic affect Results & Data Results & Data Vital Signs (Past 12 Hours) Vital Signs Temp Pulse Resp BP Pulse Ox O2 Del Method 07/20/24 06:59 36.9 C 73 16 109/71 95 Room Air 07/20/24 06:09 37 C 75 94 Room Air Laboratory Results Abnormal lab results 07/20/24 Range/Units 06:21 RBC 4.61 L (4.70-6.10) M/uL Glucose 107 H (70-99(Fasting)) mg/dl
[2024-07-20 20:36] VITALS: O2SAT 96
[2024-07-20] MEDS: CEFEPIME 2000MG 2,000 MG/20 ML SYR IV SCH (21:39)
[2024-07-21 07:00] VITALS: BP 103/64; RESP 16; TEMP 97.7
--- NOTE | 2024-07-21 08:52 | Urology Progress Note ---
Date of Service July 21, 2024 Assessment & Plan (1) Complicated UTI (urinary tract infection): (2) Bladder diverticulum: Plan 59 yo male s/p partial cystectomy and right stent placement on 07/04/2024. He seems to be responding appropriately to antibiotics. Would be reasonable to try narrowing antibiotic coverage based on his culture results. Voiding trial was successful. We reviewed ongoing expectations. He will likely have to void more frequently. I suspect his right testicular/scrotal pain with voiding is related to the right ureteral stent. It may also represent epididymoorchitis, however since he has been on antibiotics and the pain only occurs with voiding, I suspect it is more related to pressure being transmitted from the bladder through the stent and sense in the scrotum. Urology will follow along Admission and Anticipated Discharge Date Admission Date: July 19, 2024 Subjective Catheter was removed on 07/20 and he was able to void Denies any ongoing fevers or chills Has had some right testicular pain when he voids, no pain otherwise and no sensitivity of the testicle Tolerating a diet without nausea or vomiting Urine culture returned with Pseudomonas and Enterobacter cloacae Physical Exam Physical Exam: Well-appearing, NAD Results & Data Vital Signs (Past 12 Hours) Vital Signs Temp Pulse Resp BP Pulse Ox O2 Del Method 07/21/24 06:59 36.5 C 60 16 103/64 96 Room Air PG Care Time/CCT Total # of Minutes Spent Total Time Spent with Patient: Total time spent is greater than 50% in coordination of care (as documented) at patient's floor/unit and/or counseling patient: Coding Level of Care Code 77433 SUB INP/OBS CARE /25MIN Diagnoses Complicated UTI (urinary tract infection) N39.0 Bladder diverticulum N32.3
--- NOTE | 2024-07-21 11:19 | Discharge Summary ---
Date of Service July 21, 2024 Admission HPI Per Admitting Provider 59-year-old male with past medical history significant for hyperlipidemia, history of oral apththous ulcers who recently couple of weeks ago had robotic assisted laparoscopic partial cystectomy with extensive lysis of additions for bladder diverticulum and also had cystoscopy with insertion of stent in the right ureter comes because of severe abdominal pain and chills and fevers. Patient says last Monday he had a low-grade fever. And Monday he had severe abdominal pain in the flank region with nausea and he felt almost passing out. He thought he may have dehydrated as his caballero bag was not full and drank lot of water and seemed to improved. But in the Monday night again had a lot of chills and constant pain in the right flank region where his stent is placed. morning felt okay and went to work and came back at 1 PM but again started feeling chills and fevers of 102 degrees and decided to come to the ER. Patient had 1 week course of antibiotic Keflex after the procedure. Patient still has Caballero catheter. Once in a while he is noticing small amount of blood in the catheter bag. Denies any diarrhea or constipation. No chest pain or shortness of breath. No cough. No headache. No blurred vision. No runny nose or sore throat. Currently resting comfortably and hemodynamically stable. Past medical history. As mentioned above Past surgical history. Colonoscopy. Repair of inguinal hernia. Social history. No smoking. Alcohol rarely. No drug use. Family history. Mother has asthma. Diabetes. Hypertension. Father has hypertension. BPH. Sister has asthma. Maternal grandfather had stroke. Maternal grandmother had stroke. Admission Exam Per Admitting Provider General- Not in distress Head- atraumatic Eyes- PERRL. ENT- oropharynx clear Neck- supple, no JVD. Lungs- clear to auscultation no wheezing or crackles Heart- regular rate and rhythm; no murmur, no gallop. Abdomen- normal bowel sounds, soft, nontender, no distension. Extremities- no pretibial edema, no erythema seen. Neuro- alert, oriented ; PERRL, no facial palsy; no dysarthria; moves extremities. Principal Diagnosis Complicated Urinary Tract Infection Discharge Exam Constitutional + well hydrated; no acute distress Eyes PERRL, conjunctivae normal, anicteric sclerae ENMT external ear and nose normal, oropharynx normal Respiratory normal respiratory effort, lungs clear to auscultation Cardiovascular Rate/Rhythm: regular rate and regular rhythm Gastrointestinal (Abdomen) normal bowel sounds, soft, nontender, no hepatosplenomegaly Musculoskeletal no cyanosis or clubbing, extremities motor strength 5/5 Neurologic PERRL, EOMI, accommodation nl, no face palsy, no dysarthria Psychiatric A+Ox3, euthymic affect Genitourinary No scrotal swelling/redness/tenderness Discharge Data Allergies Allergy/AdvReac Type Severity Reaction Status Date / Time grass pollen-perennial rye, Allergy Intermediate CONGESTION Verified 07/04/24 11:35 standar Horse/Equine Containing Allergy Intermediate ASTHMA Verified 07/04/24 11:35 Products cat dander AdvReac Intermediate ASTHMA Verified 07/04/24 11:35 SYMPTOMS ELEPHANTS Allergy Intermediate ASTHMA Uncoded 07/04/24 11:35 Consultations 07/19/24 01:19 ED Decision to Admit Stat 07/19/24 08:00 Consult Urology Routine Ordered Studies 07/19/24 10:17 CT abdomen pelvis wo/w con Urgent Hospital Course (1) Complicated UTI (urinary tract infection): 59-year-old male with past medical history significant for hyperlipidemia, history of oral apththous ulcers who recently couple of weeks ago had robotic assisted laparoscopic partial cystectomy with extensive lysis of adhesions for bladder diverticulum and also had cystoscopy with insertion of stent in the right ureter comes because of severe abdominal pain and chills and fevers. Complicated UTI Recently had bladder procedure with stent in right ureter CT abd showed unchanged position of ureteral stent (R). Urothelial thickening of right renal collecting system and ureter with perinephric and perirenal inflammatory stranding Was initially on IV ceftriaxone Urine culture grew pseudomonas and enterobacter. Antibiotics was changed to IV Cefepime Patient reports improvement in symptoms. Patient reported mild pain/discomfort of right scrotum with urination . No abnormality noted on physical exam. May be related to UTI/referred pain. Unlikely epididymoorchitis. Based on sensitivities, Antibiotic was changed to po levofloxacin to complete 10 days of treatment. Patient to follow up with Urology outpatient Total Time Total Time Spent Total Time Spent (In Minutes): 35 Total Time Includes: Examination of the Patient, Discharge Planning and Medication Reconciliation Discharge Plan Discharge Items Patient Disposition: Home - Self-Care Reason For Visit: FLANK PAIN, UTI Discharge Diagnosis: Complicated urinary tract infection Activity: Resume your previous activity Non-emergency contact: Primary Care Provider and Urologist Call non-emergency contact if: you have any medication questions and your symptoms worsen Follow-up/Referrals: David Maldonado DO [Physician] - 07/30/24 8:00 am Narciso Wilhelm DO [Primary Care Provider] - Diet: Regular Addtl Attending Provider Instructions: Mr Lukas Simental were hospitalized and managed for complicated urinary tract infection. You are being discharged on antibiotics called Levofloxacin for the next 8 days to complete treatment. It was a pleasure taking care of you Addtl Manufacturing Engineering Director Provider Instructions: You are scheduled for stent removal in the urology clinic on 07/30/[address] Maldonado. Please call our office at [phone] with any questions, concerns or need to reschedule appointments for any reason. We are happy to assist you. Pending Studies at Discharge: No Stand-Alone Forms: My [facility], Smoking Cessation Medications and DC Order Prescriptions: New levofloxacin 750 mg tablet 750 mg PO DAILY 8 Days Qty: 8 0RF Rx Instructions: Start on 07/22/24 Continued tamsulosin 0.4 mg capsule 0.4 mg PO HS Qty: 30 0RF Rx Instructions: take 1 tablet at bedtime Discharge Orders: Discharge Order (Routine); Ordered 07/21/24 Ordered By: Nicole Dias Admission Data Admit Date/Time: 07/19/24 02:16 Attending Provider: Nicole Dias I. Admit Provider: Quique Wong Primary Care Provider: Narciso Wilhelm Other Providers: David Maldonado; Quique Wong Other Interventions: Discharge Summary Assessment (RN) Last Done: 07/21/24 12:48
[2024-07-21 12:49] VITALS: PULSE 89
--- NOTE | 2024-07-23 08:43 | Coding Query ---
CODING QUERY To promote full compliance with coding requirements relating to patient care, provider participation is requested in all cases of pigment making supervisor uncertainty. Please assist us with the question(s) below: In the record, it states that the patient has an UTI. Please clarify below the cause of the UTI if applicable. Thank you. ( ) The caballero was the cause of the UTI. ( ) Postop complication. ( ) UTI, unspecified cause. ( x ) Other (Specify):__Complicated UTI in a patient with recently placed ureteral stent. UTI may be related to stent placement Principal Diagnosis: "that condition established after study, to be chiefly responsible for occasioning the admission of the patient to the hospital for care." Co-Existing Principal Diagnosis: "when two or more diagnoses equally meet the criteria for principal diagnosis as determined by the circumstances of admission, diagnostic work up, and/or therapy provided, and the Alphabetic Index, Tabular List, or another coding guideline does not provide sequencing direction, any one of the diagnoses may be sequenced first." "When the physician has documented what appears to be a current diagnosis in the body of the record, but has not included the diagnosis in the final diagnostic statement, the physician should be asked whether the diagnosis should be added." (Source Coding [facility] 2 QTR90. p3-4) KELIN
== END 2024-07-21 14:13 | disposition home or self-care (01) | DRG 699 ==
LOC: ED 23:26 → 3W 07-19 02:16